=== PATIENT | male | born 1980 | race Caucasian/White ===

== ENCOUNTER 2023-04-26 09:19 | Outpatient (OUT) | payer OTHER, SELFPAY ==
[2023-04-26 10:14] LABS: Basophils Absolute Auto 0.1 10^3/uL (0.0-0.1); Basophils Percent Auto 0.9 % (0.2-2.0); Eosinophils Absolute Auto 0.3 10^3/uL (0.0-0.7); Eosinophils Percent Auto 4.8 % (0.9-7.0); Hematocrit 41.8 % (42.0-54.0); Hemoglobin 13.6 g/dL (14.0-18.0); Immature Granulocytes Abs Auto 0.02 10^3/uL (0.00-0.03); Immature Granulocytes Pct Auto 0.4 % (0.0-0.5); Lymphocytes Absolute Auto 1.4 10^3/uL (1.2-3.8); Lymphocytes Percent Auto 25.4 % (20.5-60.0); Mean Corpuscular HGB Conc 32.5 g/dL (29.9-35.2); Mean Corpuscular Hemoglobin 27.6 pg (25.9-34.0); Mean Corpuscular Volume 84.8 fL (80.0-94.0); Mean Platelet Volume 10.4 fL (9.5-13.5); Monocytes Absolute Auto 0.5 10^3/uL (0.3-0.8); Neutrophils Absolute Auto 3.4 10^3/uL (1.4-6.5); Neutrophils Percent Auto 59.5 % (43.0-75.0); Platelet Count 264 10^3/uL (150-450); Red Blood Count 4.93 10^6/uL (4.70-6.10); Red Cell Distribution Width 13.6 % (11.0-15.0); White Blood Count 5.7 10^3/uL (4.0-11.0)
[2023-04-26 10:54] LABS: Alanine Aminotransferase 28 U/L (16-63); Albumin Globulin Ratio 1.1; Albumin Level 3.9 g/dL (3.4-5.0); Alkaline Phosphatase 55 U/L (46-116); Anion Gap 12.6; Aspartate Amino Transferase 16 U/L (15-37); BUN Creatinine Ratio 13.4; Bilirubin Total 0.5 mg/dL (0.2-1.0); Calcium 8.8 mg/dL (8.5-10.1); Carbon Dioxide 30.6 mmol/L (21.0-32.0); Chloride 100 mmol/L (98-107); Chol HDL Ratio 5.7; Cholesterol 249 mg/dL (<=200); Estimated GFR (African America >60 (>=60); Estimated GFR (Non-African Ame >60 (>=60); Globulin 3.6 g/dL; Glucose 99 mg/dL (74-106); HDL Cholesterol 44 mg/dL (40-60); Potassium 4.2 mmol/L (3.5-5.1); Sodium 139 mmol/L (136-145); Total Protein 7.5 g/dL (6.4-8.2); Triglycerides 95 mg/dL (<=150)
== END 2023-04-26 09:20 | disposition home or self-care (01) ==
LOC: LAB 09:23
PROVIDERS: PCP Internal Medicine; Visit Provider Internal Medicine
DX: E78.5 Hyperlipidemia, unspecified (principal); I99.8 Other disorder of circulatory system
CPT/HCPCS: 36415; 80053; 80061; 82088; 82533; 83835; 84244; 85025

== ENCOUNTER 2023-06-07 09:48 | Outpatient (OUT) | payer OTHER, SELFPAY ==
--- NOTE | 2023-06-07 09:54 | XR_ITS ---
The [address] [address] Patient Name: KATHLEEN LENZ MRN: [id number] date: 1980 Sex: M Assigned Patient Location: RAD Current Patient Location: RAD Accession/Order Number: [id number] Exam Date: 06/07/2023 09:57 Report Date: 06/07/2023 12:25 At the request of: SHAIKH NASRIN Procedure: XR chest 2V EXAM: XR chest 2V HISTORY: Abnormal Chest Xray R93.89 COMPARISON: None. TECHNIQUE: 2 PA and lateral views of chest performed. FINDINGS: There is elevation of the right hemidiaphragm to the level of the right hilum with associated compressive atelectasis. The linear densities adjacent to the elevated right hemidiaphragm correlate with discoid atelectasis. The right cardiac margin is obscured. Visualized portions of the cardiomediastinal silhouette are unremarkable. There is no consolidation or infiltrate. There is no pleural effusion or pulmonary vascular congestion. There is no pneumothorax or osseous abnormality. XR/XR chest 2V IMPRESSION: There is elevation of the right hemidiaphragm to the level of the right hilum with associated compressive atelectasis. The linear densities adjacent to the elevated right hemidiaphragm correlate with discoid atelectasis. Electronically authenticated by: JENNIFER GOOD Date: 06/07/2023 12:25
--- OUTSIDE RECORDS SUMMARY | 2023-06-07 09:55 | XMS_ITS | CCD ---
Author Name Unknown Address [address] [place] [address] Organization [facility] Care Team Providers Care Traffic Personnel Supervisor Name Role Phone DR KACEY LUCAS Admitting Unavailable JACOB, DR KACEY Cortez Attending Unavailable JACOB, DR KACEY Cortez Primary Care Unavailable JACOB, DR KACEY Cortez Consulting Unavailable JACOB, DR BABCOCK Admitting Unavailable JACOB, DR BABCOCK Attending Unavailable JACOB, DR KACEY Cortez Primary Care Unavailable JACOB, DR KACEY Cortez Consulting Unavailable Shaikh Alexandra MD Primary Care Provider SHAIKH ALEXANDRA Attending Unavailable SHAIKH ALEXANDRA Attending Unavailable Medications Current Medications Medication Drug Class(es) Dates Sig (Normalized) Sig (Original) amLODIPine 10 mg oral tablet (1 source) Dihydropyridine Calcium Channel Deonte Start: 4 End: 4 take 1 tablet by mouth in the morning amLODIPine (Norvasc) 10 MG tablet Indications: Poorly controlled blood pressure Take 1 tablet (10 mg) by mouth in the morning. 90 tablet 0 04/22/2023 07/21/2023 Active atorvastatin 40 mg oral tablet (1 source) HMG-CoA Reductase Inhibitor Start: 4 End: 4 take 1 tablet by mouth in the morning atorvastatin (Lipitor) 40 MG tablet Indications: Hyperlipidemia, unspecified hyperlipidemia type (CMS/HCC) Take 1 tablet (40 mg) by mouth in the morning. 90 tablet 0 04/22/2023 07/21/2023 Active carvedilol 25 mg oral tablet (1 source) alpha-Adrenergic Deonte, beta-Adrenergic Deonte Start: 4 End: 4 take 1 tablet by mouth in the morning carvedilol (Coreg) 25 MG tablet Indications: Poorly controlled blood pressure Take 1 tablet (25 mg) by mouth in the morning and 1 tablet (25 mg) in the evening. Take with meals. 180 tablet 0 04/22/2023 07/21/2023 Active hydroCHLOROthiazide 25 mg / losartan potassium 100 mg oral tablet (1 source) Thiazide Diuretic, Angiotensin 2 Receptor Deonte Start: End: 4 take 1 tablet by mouth in the morning losartan-hydroCHLO ROthiazide (Hyzaar) 100-25 MG tablet Indications: Poorly controlled blood pressure Take 1 tablet by mouth in the morning. 90 tablet 0 04/22/2023 07/21/2023 Active Problems Problem Classification Problem Date Documented Da te Episodic/Chronic Administrative/social admission (1 source) Patient encounter status; Translations: [Persons encountering health services in other specified circumstances] Onset: 04-22-2023 04-22-2023 Episodic Disorders of lipid metabolism (1 source) Hyperlipidemia; Translations: [Hyperlipidemia, unspecified] Onset: 04-22-2023 04-22-2023 Chronic Essential hypertension (1 source) Essential hypertension; Translations: [Essential (primary) hypertension] Onset: 04-22-2023 04-22-2023 Chronic Genitourinary symptoms and ill-defined conditions (1 source) Nocturia; Translations: [NOCTURIA] Onset: 04-28-2021 Episodic Other circulatory disease (1 source) Abnormal blood pressure; Translations: [Other disorder of circulatory system] Onset: 04-22-2023 04-22-2023 Episodic Residual codes; unclassified (4 sources) Obstructive sleep apnea (adult) (pediatric); Translations: [OBSTRUCTIVE SLEEP APNEA] Onset: 06-01-2020 Chronic Residual codes; unclassified (1 source) Obstructive sleep apnea syndrome; Translations: [Obstructive sleep apnea (adult) (pediatric)] Onset: 04-22-2023 04-22-2023 Chronic Results Test Name Value Interpretation Reference Range Facility ALL CBC WITH AUTO DIFFon BASOPHILS ABSOLUTE AUTO 0.1 [facility] Basophils/100 WBC (Bld) 0.9 % 0.2 - 2.0 % [facility] Eosinophils/100 WBC (Bld) 4.8 % 0.9 - 7.0 % [facility] Erythrocyte distribution width (RBC) [Ratio] 13.6 % 11.0 - 15.0 % [facility] Hematocrit (Bld) [Volume fraction] 41.8 % Low 42.0 - 54.0 % [facility] Hemoglobin (Bld) [Mass/Vol] 13.6 g/dL Low 14.0 - 18.0 g/dL [facility] IMMATURE GRANULOCYTES ABS AUTO 0.02 [facility] Immature granulocytes/100 WBC (Bld) 0.4 % 0.0 - 0.5 % [facility] Interpretation and review of laboratory results Abnormal [facility] LYMPHOCYTES ABSOLUTE AUTO 1.4 [facility] Lymphocytes/100 WBC (Bld) 25.4 % 20.5 - 60.0 % [facility] MCH (RBC) [Entitic mass] 27.6 pg 25.9 - 34.0 pg [facility] MCHC (RBC) [Mass/Vol] 32.5 g/dL 29.9 - 35.2 g/dL [facility] MCV (RBC) [Entitic vol] 84.8 fL 80.0 - 94.0 fL [facility] MONOCYTES ABSOLUTE AUTO 0.5 [facility] Monocytes/100 WBC (Bld) 9.0 % 1.7 - 12.0 % [facility] NEUTROPHILS ABSOLUTE AUTO 3.4 [facility] Neutrophils/100 WBC (Bld) 59.5 % 43.0 - 75.0 % [facility] Platelet mean volume (Bld) [Entitic vol] 10.4 fL 9.5 - 13.5 fL [facility] EO # 0.3 [facility] TB PLT 264 [facility] TB RBC 4.93 [facility] TB WBC 5.7 [facility] CBC AUTO DIFFon 04-26-2021 BASO # 0.1 103/ul Normal 0.0-0.1 [facility] Comment on above: Performed By: #### C BC #### [facility] [address] [place], [place] [address] Dr. Alo Hendricks Basophils/100 WBC (Bld) 0.9 % Normal 0.2-2.0 [facility] Comment on above: Performed By: #### C BC #### [facility] [address] [place] [address] [address] Alo Hendricks EO # 0.3 103/ul Normal 0.0-0.7 [facility] Comment on above: Performed By: #### C BC #### [facility] [address] [place] [address] Dr. Alo Hendricks Eosinophils/100 WBC (Bld) 4.9 % Normal 0.9-7.0 [facility] Comment on above: Performed By: #### C BC #### [facility] [address] [place] [address] Dr. Alo Hendricks Erythrocyte distribution width (RBC) [Ratio] 13.3 % Normal 11.0-15.0 [facility] Comment on above: Performed By: #### C BC #### [facility] [address] [place] [address] Dr. Alo Hendricks Hematocrit (Bld) [Volume fraction] 43.2 % Normal 42.0-54.0 [facility] Comment on above: Performed By: #### C BC #### [facility] [address] [place] [address] Dr. Alo Hendricks Hemoglobin (Bld) [Mass/Vol] 13.7 g/dL Critically low 14.0-18.0 [facility] Comment on above: Performed By: #### C BC #### [facility] [address] [place] [address] Dr. Alo Hendricks IG # 0.03 10e3/ul Normal 0.00-0.03 [facility] Comment on above: Performed By: #### C BC #### [facility] [address] [place] [address] Dr. Alo Hendricks IG % 0.5 % Normal 0.0-0.5 [facility] Comment on above: Performed By: #### C BC #### [facility] [address] [place] [address] Dr. Alo Hendricks LYMPH # 1.8 103/ul Normal 1.2-3.8 [facility] Comment on above: Performed By: #### C BC #### [facility] [address] [place] [address] Dr. Alo Hendricks Lymphocytes/100 WBC (Bld) 27.7 % Normal 20.5-60.0 [facility] Comment on above: Performed By: #### C BC #### [facility] [address] [place] [address] Dr. Alo Hendricks MANUAL DIFF REQ NO Normal [facility] Comment on above: Performed By: #### C BC #### [facility] [address] [place] [address] Dr. Alo Hendricks MCH (RBC) [Entitic mass] 27.9 pg Normal 25.9-34.0 [facility] Comment on above: Performed By: #### C BC #### [facility] [address] [place] [address] Dr. Alo Hendricks MCHC (RBC) [Mass/Vol] 31.7 g/dL Normal 29.9-35.2 [facility] Comment on above: Performed By: #### C BC #### [facility] [address] [place] [address] Dr. Alo Hendricks MCV (RBC) [Entitic vol] 88.0 fL Normal 80.0-94.0 [facility] Comment on above: Performed By: #### C BC #### [facility] [address] [place] [address] Dr. Alo Hendricks MONO # 0.7 103/ul Normal 0.3-0.8 [facility] Comment on above: Performed By: #### C BC #### [facility] [address] [place] [address] Dr. Alo Hendricks Monocytes/100 WBC (Bld) 11.0 % Normal 1.7-12.0 [facility] Comment on above: Performed By: #### C BC #### [facility] [address] [place] [address] Dr. Alo Hendricks NEUT # 3.6 103/ul Normal 1.4-6.5 [facility] Comment on above: Performed By: #### C BC #### [facility] [address] [place] [address] Dr. Alo Hendricks Neutrophils/100 WBC (Bld) 55.0 % Normal 43.0-75.0 [facility] Comment on above: Performed By: #### C BC #### [facility] [address] [place] [address] Dr. Alo Hendricks Platelet mean volume (Bld) [Entitic vol] 10.4 fL Normal 9.5-13.5 [facility] Comment on above: Performed By: #### C BC #### [facility] [address] [place] [address] Dr. Alo Hendricks PLT 262 103/ul Normal 150-450 [facility] Comment on above: Performed By: #### C BC #### [facility] [address] [place] [address] Dr. Alo Hendricks RBC 4.91 106/ul Normal 4.70-6.10 [facility] Comment on above: Performed By: #### C BC #### [facility] [address] [place] [address] Dr. Alo Hendricks WBC 6.6 103/ul Normal 4.0-11.0 [facility] Comment on above: Performed By: #### C BC #### [facility] [address] [place] [address] Dr. Alo Hendricks LIPID PROFILEon 04-26-2021 CHOL-HDL RATIO NORM SEE BELOW Normal [facility] Comment on above: Result Comment: 3.3 - 4.4 LOW RISK 4.4 - 7.1 AVERAGE RISK 7.1 - 11.0 MODERATE RISK >11.0 HIGH RISK Performed By: #### L IPID, CMP #### [facility] [address] [place] [address] Dr. Alo Hendricks Cholesterol [Mass/Vol] 165 mg/dL Normal <=200 [facility] Comment on above: Performed By: #### L IPID, CMP #### [facility] [address] [place] [address] Dr. Alo Hendricks Cholesterol in HDL [Mass/Vol] 48 mg/dL Normal [facility] Comment on above: Performed By: #### L IPID, CMP #### [facility] [address] [place] [address] Dr. Alo Hendricks Cholesterol in LDL [Mass/Vol] 95.8 mg/dL Normal [facility] Comment on above: Performed By: #### L IPID, CMP #### [facility] [address] [place] [address] Dr. Alo Hendricks Cholesterol.total/Ch olesterol in HDL [Mass ratio] 3.4 {ratio} Normal [facility] Comment on above: Performed By: #### L IPID, CMP #### [facility] [address] [place] [address] Dr. Alo Hendricks HDL NORMAL > or = 60 mg/dl - LOW CARDIOVASCULAR RISK <40 mg/dl - HIGH CARDIOVASCULAR RISK Normal [facility] Comment on above: Performed By: #### L IPID, CMP #### [facility] [address] [place] [address] Dr. Alo Hendricks LDL CALC NORMAL SEE BELOW Normal [facility] Comment on above: Result Comment: <100 mg/dl OPTIMAL 100 - 129 mg/dl NEAR OR ABOVE OPTIMAL 130 - 159 mg/dl BORDERLINE HIGH 160 - 189 mg/dl HIGH >190 mg/dl VERY HIGH Performed By: #### L IPID, CMP #### [facility] [address] [place] [address] Dr. Alo Hendricks Triglyceride [Mass/Vol] 106 mg/dL Normal <=150 [facility] Comment on above: Performed By: #### L IPID, CMP #### [facility] [address] [place] [address] Dr. Alo Hendricks VLDL CALC 21.2 mg/dL Normal [facility] Comment on above: Performed By: #### L IPID, CMP #### [facility] [address] [place] [address] [address] Alo Hendricks PROF 14(COMP METB)on 022 Albumin [Mass/Vol] 4.1 g/dL Normal 3.5-5.0 [facility] Comment on above: Performed By: #### L IPID, CMP #### [facility] [address] [place] [address] Dr. Alo Hendricks Albumin/Globulin [Mass ratio] 1.1 {ratio} Normal [facility] Comment on above: Performed By: #### L IPID, CMP #### [facility] [address] [place] [address] Dr. Alo Hendricks ALP [Catalytic activity/Vol] 61 U/L Normal 38-126 [facility] Comment on above: Performed By: #### L IPID, CMP #### [facility] [address] [place] [address] Dr. Alo Hendricks ALT [Catalytic activity/Vol] 45 U/L Normal 21-72 [facility] Comment on above: Performed By: #### L IPID, CMP #### [facility] [address] [place] [address] Dr. Alo Hendricks Anion gap [Moles/Vol] 11.8 mmol/L Normal [facility] Comment on above: Performed By: #### L IPID, CMP #### [facility] [address] [place] [address] Dr. Alo Hendricks AST [Catalytic activity/Vol] 28 U/L Normal 17-59 [facility] Comment on above: Performed By: #### L IPID, CMP #### [facility] [address] [place] [address] Dr. Alo Hendricks Bilirubin [Mass/Vol] 0.6 mg/dL Normal 0.2-1.3 [facility] Comment on above: Performed By: #### L IPID, CMP #### [facility] [address] [place] [address] Dr. Alo Hendricks Calcium [Mass/Vol] 9.2 mg/dL Normal 8.4-10.2 [facility] Comment on above: Performed By: #### L IPID, CMP #### [facility] [address] [place] [address] Dr. Alo Hendricks Chloride [Moles/Vol] 99 mmol/L Normal 98-107 [facility] Comment on above: Performed By: #### L IPID, CMP #### [facility] [address] [place] [address] Dr. Alo Hendricks CO2 [Moles/Vol] 32.1 mmol/L Critically high 22.0-30.0 [facility] Comment on above: Performed By: #### L IPID, CMP #### [facility] [address] [place] [address] Dr. Alo Hendricks Creatinine [Mass/Vol] 0.76 mg/dL Normal 0.66-1.25 [facility] Comment on above: Performed By: #### L IPID, CMP #### [facility] [address] [place] [address] [address] Alo Hendricks EGFR-AF ARMENIAN >60 Normal >=60 [facility] Comment on above: Performed By: #### L IPID, CMP #### [facility] [address] [place] [address] Dr. Alo Hendricks EGFR-NON AF ARMENIAN >60 Normal >=60 [facility] Comment on above: Performed By: #### L IPID, CMP #### [facility] [address] [place] [address] Dr. Alo Hendricks Globulin (S) [Mass/Vol] 3.7 g/dL Normal [facility] Comment on above: Performed By: #### L IPID, CMP #### [facility] [address] [place] [address] Dr. Alo Hendricks Glucose [Mass/Vol] 101 mg/dL Normal 74-106 [facility] Comment on above: Performed By: #### L IPID, CMP #### [facility] [address] [place] [address] Dr. Alo Hendricks Potassium [Moles/Vol] 4.9 mmol/L Normal 3.4-5.0 [facility] Comment on above: Performed By: #### L IPID, CMP #### [facility] [address] [place] [address] Dr. Alo Hendricks Protein [Mass/Vol] 7.8 g/dL Normal 6.1-8.2 [facility] Comment on above: Performed By: #### L IPID, CMP #### [facility] [address] [place] [address] Dr. Alo Hendricks Sodium [Moles/Vol] 138 mmol/L Normal 137-145 [facility] Comment on above: Performed By: #### L IPID, CMP #### [facility] [address] [place] [address] Dr. Alo Hendricks Urea nitrogen [Mass/Vol] 12.0 mg/dL Normal 9.0-20.0 [facility] Comment on above: Performed By: #### L IPID, CMP #### [facility] [address] [place] [address] Dr. Alo Hendricks Urea nitrogen/Creatinine [Mass ratio] 15.8 mg/mg Normal [facility] Comment on above: Performed By: #### L IPID, CMP #### [facility] [address] [place] [address] Dr. Alo Hendricks UA (CLEAN/CATCH) SERVICE LIAISON REPRESENTATIVE/MICRO I F IND.on 04-26-2021 Bilirubin Ql (U) Negative Normal NEGATIVE [facility] Comment on above: Performed By: #### U MICRO, UACSIND #### [facility] [address] [place] [address] Dr. Alo Hendricks Clarity (U) CLEAR Normal CLEAR [facility] Comment on above: Performed By: #### U MICRO, UACSIND #### [facility] [address] [place] [address] Dr. Alo Hendricks Color (U) LT. YELLOW Normal YELLOW [facility] Comment on above: Performed By: #### U MICRO, UACSIND #### [facility] [address] [place] [address] Dr. Alo Hendricks Glucose Ql (U) Negative Normal NEGATIVE [facility] Comment on above: Performed By: #### U MICRO, UACSIND #### [facility] [address] [place] [address] Dr. Alo Hendricks Hemoglobin Ql (U) Negative Normal NEGATIVE [facility] Comment on above: Performed By: #### U MICRO, UACSIND #### [facility] [address] [place] [address] Dr. Alo Hendricks Ketones Ql (U) Negative Normal NEGATIVE [facility] Comment on above: Performed By: #### U MICRO, UACSIND #### [facility] [address] [place] [address] [address] Alo Hendricks LEUKOCYTES Negative Normal NEGATIVE [facility] Comment on above: Performed By: #### U MICRO, UACSIND #### [facility] [address] [place] [address] [address] Alo Hendricks Nitrite Ql (U) Negative Normal NEGATIVE [facility] Comment on above: Performed By: #### U MICRO, UACSIND #### [facility] [address] [place] [address] [address] Alo Hendricks pH (U) 7.5 [pH] Normal 5-9 [facility] Comment on above: Performed By: #### U MICRO, UACSIND #### [facility] [address] [place] [address] Dr. Alo Hendricks SPEC GRAVITY 1.010 Normal 1.005-<=1.025 [facility] Comment on above: Performed By: #### U MICRO, UACSIND #### [facility] [address] [place] [address] Dr. Alo Hendricks UA PROTEIN Negative Normal NEGATIVE/ TRACE [facility] Comment on above: Performed By: #### U MICRO, UACSIND #### [facility] [address] [place] [address] Dr. Alo Hendricks UR MICRO IND MICROSCOPIC ALREADY ORDERED Normal [facility] Comment on above: Performed By: #### U MICRO, UACSIND #### [facility] [address] [place] [address] [address] Alo Hendricks Urobilinogen Qn (U) 0.2 {Leann'U}/dL Normal 0.2 - 1. 0 [facility] Comment on above: Performed By: #### U MICRO, UACSIND #### [facility] [address] [place] [address] Dr. Alo Hendricks URINE MICROSCOPIC ONLYon BACTERIA NONE SEEN Normal NONE SEEN [facility] Comment on above: Performed By: #### U MICRO, UACSIND #### [facility] [address] [address] [address] Alo Hendricks Bacteria identified Cx Nom (U) NOT INDICATED Normal [facility] Comment on above: Performed By: #### U MICRO, UACSIND #### [facility] [address] [place] [address] Dr. Alo Hendricks CAST NONE SEEN Normal NONE SEEN [facility] Comment on above: Performed By: #### U MICRO, UACSIND #### [facility] [address] [address] [address] Alo Hendricks Crystals LM Nom (Urine sed) NONE SEEN Normal NONE SEEN [facility] Comment on above: Performed By: #### U MICRO, UACSIND #### [facility] [address] [place] [address] Dr. Alo Hendricks Epithelial cells LM Ql (Urine sed) NONE SEEN Normal NONE SEEN /RARE [facility] Comment on above: Performed By: #### U MICRO, UACSIND #### [facility] [address] [address] [address] Alo Hendricks MUCOUS NONE SEEN Normal NONE SEEN [facility] Comment on above: Performed By: #### U MICRO, UACSIND #### [facility] [address] [place] [address] Dr. Alo Hendricks RBC 0-2 Normal 0-2 [facility] Comment on above: Performed By: #### U MICRO, UACSIND #### [facility] [address] [place] [address] Dr. Alo Hendricks WBC NONE SEEN Normal NONE SEEN [facility] Comment on above: Performed By: #### U MICRO, UACSIND #### [facility] [address] [place] [address] Dr. Alo Hendricks Encounters Encounter Date Encounter Type Care Provider Facility Start: 05-27-2023 End: 05-27-2023 ambulatory SHAIKH NASRIN Not Available Start: 04-26-2023 [facility] Result Encounter Shaikh Nasrin GIRALDO Work Phone: [facility] Unsolicited Start: 04-26-2023 [facility] Result Encounter Shaikh Nasrin GIRALDO Work Phone: [facility] Unsolicited Start: 04-22-2023 End: 04-22-2023 ambulatory SHAIKH NASRIN Not Available Start: 04-28-2021 Encounter for genera l adult medical examination without abnormal findings DR SADIQ LUCAS [facility] Start: 04-26-2021 End: 04-27-[address] SADIQ LUCAS Facility:[facility] Start: 04-26-2021 End: 04-27-2021 Encounter for general adult medical examination without abnormal findings DR SADIQ LUCAS Facility:[facility] Start: 06-01-2020 End: 06-02-[address] KACEY LUCAS Facility:[facility] Procedures Date Procedure Procedure Detail Performing Clinician Start: 04-26-2023 ALL CBC WITH AUTO DIFF Shaikh Nasrin GIRALDO Work Phone: Plan of Treatment Date Care Activity Detail Author Start: 05-27-2023 End: 05-27-2023 Patient encounter procedure 05/27/2023 6:30 PM EST Office Visit [facility] [address] [place] [address] Shaikh Alexandra MD [address] [place] [address] [facility] Start: 11-23-2022 Influenza vaccination Influenza Vacc ine (#1) [facility] Start: 1980 Screening for malign ant neoplasm of colon [facility] Payers Date Payer Category Payer Private Health Insurance ALLYSON MCKEON [id number] 2023-Present [address] [place] [id number] 1978 Unknown [id number] 1978 Unknown [id number] 1978 Unknown [id number] 1978 Unknown [id number] 1959 Private Health Insurance [id number] [id number] 1961 Private Health Insurance [id number] [id number] Social History Date Type Detail Facility Start: 04-22-2023 Tobacco smoking stat [facility] Ex-smoker [facility] History of tobacco use Current smoker [facility] History of tobacco use Cigarette Smoker [facility] History of tobacco use Passive smoker [facility] Start: 04-22-2023 Tobacco use and exposure Smokeless t obacco non-user [facility] Start: 04-22-2023 Alcohol intake Lifetime non-d sanjeev (finding) [facility] Start: 04-22-2023 History of Social function [facility] Start: 04-22-2023 Tobacco use panel [facility] Start: 1980 Sex Assigned At Not on file [facility] Clinical Note 06-01-2020 Note Date & Type Note Facility 06-01-2020 Note HOME SLEEP STUDY Ordering Physician: Dr. Kacey Lucas Procedure Date: 06-01-20 CLINICAL HISTORY: This is a 40 year-old male who is 70 tall, weighs 214 pounds, has a body mass index of 29. The patient was referred for a home sleep study due to loud snoring and high blood pressure. RECORDING TIME: The total recording time was 8 hours and 2 minutes, total monitoring time was 7 hours and 14 minutes. COMPREHENSIVE VENTILATORY MONITORING: The patient had 4 apneas and 128 hypopneas. This led to an apnea/hypopnea index of 18 per hour. The average oxygenation while awake was 90% with a minimum oxygen saturation down to 72%. PULSE DATA: The average pulse rate was 77 bpm, maximum pulse rate was 106 bpm and minimum. SNORING DATA: The patient had 85 snoring occurrences. IMPRESSION: 1. This patient does meet criteria for a moderate obstructive sleep apnea with hypoxia and would benefit from CPAP titration. 2. This patient would benefit from treatment of any other coexisting medical condition including obesity, insomnia, anxiety or depression. 3. Please correlate clinically. [facility] Summary Purpose Family History No Family History Records FoundNo Family History Records Found Advance Directives No Advanced Directives Records FoundNo Advanced Directives Records Found Additional Source Comments (unrecognized sect ion and content) No Status Records FoundNo Status Records Found INFORMATION SOURCE (unrecogn ized section and content) DATE CREATED AUTHOR 04/29/2021 [facility] DATE CREATED AUTHOR AUTHOR'S ORGANIZ ATION 05/28/2023 [facility] [employer] Care Teams (unrecognized sec tion and content) Traffic Personnel Supervisor Relationship Specialty Start Date End Date Shaikh Alexandra MD [address] [place] [address] PCP - General Internal Medicine 04/22/23 FOR RECORDS PERTAINING TO PATIENTS WHO ARE OR HAVE BEEN ENROLLED IN A CHEMICAL DEPENDENCY/SUBSTANCEABUSE PROGRAM, SOME INFORMATION MAY BE OMITTED. This clinical summary was aggregated from multiple sources. Caution should be exercised in using it in the provision of clinical care. This summary normalizes information from multiple sources, and as a consequence, information in this document may materially change the coding, format and clinical context of patient data. In addition, data may be omitted in some cases. CLINICAL DECISIONS SHOULD BE BASED ON THE PRIMARY CLINICAL RECORDS. [employer] provides no warranty or guarantee of the accuracy or completeness of information in this document.
== END 2023-06-07 09:49 | disposition home or self-care (01) ==
LOC: RAD 09:50
PROVIDERS: PCP Internal Medicine; Visit Provider Internal Medicine
DX: E78.5 Hyperlipidemia, unspecified (principal); R93.89 Abnormal findings on diagnostic imaging of other specified body structures; J98.11 Atelectasis
CPT/HCPCS: 71046

== ENCOUNTER 2023-07-01 13:21 | Outpatient (OUT) | payer OTHER, SELFPAY ==
--- OUTSIDE RECORDS SUMMARY | 2023-07-01 13:37 | XMS_ITS | CCD ---
Author Organization [facility] Care Team Providers Care Ruby On Rails Software Developer Name Role Phone JACOB, DR KACEY Cortez Admitting Unavailable JACOB, DR KACEY Cortez Attending Unavailable JACOB, DR KACEY Cortez Primary Care Unavailable JACOB, DR KACEY Cortez Consulting Unavailable JACOB, DR BABCOCK Admitting Unavailable JACOB, DR BABCOCK Attending Unavailable JACOB, DR KACEY Cortez Primary Care Unavailable JACOB, DR KACEY Cortez Consulting Unavailable Shaikh Alexandra MD Primary Care Provider [phone] SHAIKH ALEXANDRA Attending Unavailable SHAIKH ALEXANDRA Attending Unavailable ELIO MACHADO Attending Unavailable SHAIKH ALEXANDRA Referring Unavailable Medications Current Medications Medication Drug Class(es) [...] Thiazide Diuretic, Angiotensin 2 Receptor Deonte Start: 4 End: 4 take 1 [...] WITH AUTO DIFFon BASOPHILS ABSOLUTE AUTO 0.1 [facility] Basophils/100 WBC (Bld) 0.9 % 0.2 - 2.0 % [facility] Eosinophils/100 WBC (Bld) 4.8 % 0.9 - 7.0 % [facility] Erythrocyte distribution width (RBC) [Ratio] 13.6 % 11.0 - 15.0 % [facility] Hematocrit (Bld) [Volume fraction] 41.8 % Low 42.0 - 54.0 % [facility] Hemoglobin (Bld) [Mass/Vol] 13.6 g/dL Low 14.0 - 18.0 g/dL [facility] IMMATURE GRANULOCYTES ABS AUTO 0.02 [facility] Immature granulocytes/100 WBC (Bld) 0.4 % 0.0 - 0.5 % [facility] Interpretation and review of laboratory results Abnormal [facility] LYMPHOCYTES ABSOLUTE AUTO 1.4 [facility] Lymphocytes/100 WBC (Bld) 25.4 % 20.5 - 60.0 % [facility] MCH (RBC) [Entitic mass] 27.6 pg 25.9 - 34.0 pg [facility] MCHC (RBC) [Mass/Vol] 32.5 g/dL 29.9 - 35.2 g/dL [facility] MCV (RBC) [Entitic vol] 84.8 fL 80.0 - 94.0 fL [facility] MONOCYTES ABSOLUTE AUTO 0.5 [facility] Monocytes/100 WBC (Bld) 9.0 % 1.7 - 12.0 % [facility] NEUTROPHILS ABSOLUTE AUTO 3.4 [facility] Neutrophils/100 WBC (Bld) 59.5 % 43.0 - 75.0 % [facility] Platelet mean volume (Bld) [Entitic vol] 10.4 fL 9.5 - 13.5 [facility]L [facility] # [facility].3 [facility] TB PLT 264 [facility] TB RBC 4.93 [facility] TB WBC 5.7 [facility] CBC AUTO DIFFon 04-26-2021 BASO # 0.1 103/ul Normal 0.0-0.1 [facility] Comment on above: Performed By: #### C BC #### [facility] [address] [place] [address] [address] Alo Hendricks Basophils/100 WBC (Bld) 0.9 % Normal 0.2-2.0 [facility] Comment on above: Performed By: #### C BC #### [facility] [address] [place], [place] [address] Dr. Alo Hendricks EO # 0.3 103/ul Normal 0.0-0.7 [facility] Comment on above: Performed By: #### C BC #### [facility] [address] [place] [address] Dr. Alo Hendricks Eosinophils/100 WBC (Bld) 4.9 % Normal 0.9-7.0 [facility] Comment on above: Performed By: #### C BC #### [facility] [address] [place] [address] Dr. Alo Hendricks Erythrocyte distribution width (RBC) [Ratio] 13.3 % Normal 11.0-15.0 [facility] Comment on above: Performed By: #### C BC #### [facility] [address] [place] [address] Dr. Alo Hendricks Hematocrit (Bld) [Volume fraction] 43.2 % Normal 42.0-54.0 [facility] Comment on above: Performed By: #### C BC #### [facility] [address] [place] [address] Dr. Alo Hendricks Hemoglobin (Bld) [Mass/Vol] 13.7 g/dL Critically low 14.0-18.0 [facility] Comment on above: Performed By: #### C BC #### [facility] [address] [place] [address] Dr. Alo Hendricks IG # 0.03 10e3/ul Normal 0.00-0.03 [facility] Comment on above: Performed By: #### C BC #### [facility] [address] [place] [address] Dr. Alo Hendricks IG % 0.5 % Normal 0.0-0.5 [facility] Comment on above: Performed By: #### C BC #### [facility] [address] [place] [address] Dr. Alo Hendricks LYMPH # 1.8 103/ul Normal 1.2-3.8 [facility] Comment on above: Performed By: #### C BC #### [facility] [address] [place] [address] Dr. Alo Hendricks Lymphocytes/100 WBC (Bld) 27.7 % Normal 20.5-60.0 [facility] Comment on above: Performed By: #### C BC #### [facility] [address] [place] [address] Dr. Alo Hendricks MANUAL DIFF REQ NO Normal [facility] Comment on above: Performed By: #### C BC #### [facility] [address] [place] [address] Dr. Alo Hendricks MCH (RBC) [Entitic mass] 27.9 pg Normal 25.9-34.0 [facility] Comment on above: Performed By: #### C BC #### [facility] [address] [place] [address] Dr. Alo Hendricks MCHC (RBC) [Mass/Vol] 31.7 g/dL Normal 29.9-35.2 [facility] Comment on above: Performed By: #### C BC #### [facility] [address] [place] [address] Dr. Alo Hendricks MCV (RBC) [Entitic vol] 88.0 fL Normal 80.0-94.0 [facility] Comment on above: Performed By: #### C BC #### [facility] [address] [place] [address] Dr. Alo Hendricks MONO # 0.7 103/ul Normal 0.3-0.8 [facility] Comment on above: Performed By: #### C BC #### [facility] [address] [place] [address] Dr. Alo Hendricks Monocytes/100 WBC (Bld) 11.0 % Normal 1.7-12.0 [facility] Comment on above: Performed By: #### C BC #### [facility] [address] [place] [address] Dr. Alo Hendricks NEUT # 3.6 103/ul Normal 1.4-6.5 [facility] Comment on above: Performed By: #### C BC #### [facility] [address] [place] [address] Dr. Alo Hendricks Neutrophils/100 WBC (Bld) 55.0 % Normal 43.0-75.0 [facility] Comment on above: Performed By: #### C BC #### [facility] [address] [place] [address] Dr. Alo Hendricks Platelet mean volume (Bld) [Entitic vol] 10.4 fL Normal 9.5-13.5 [facility] Comment on above: Performed By: #### C BC #### [facility] [address] [place] [address] Dr. Alo Hendricks PLT 262 103/ul Normal 150-450 [facility] Comment on above: Performed By: #### C BC #### [facility] [address] [place] [address] Dr. Alo Hendricks RBC 4.91 106/ul Normal 4.70-6.10 [facility] Comment on above: Performed By: #### C BC #### [facility] [address] [place] [address] Dr. Alo Hendricks WBC 6.6 103/ul Normal 4.0-11.0 [facility] Comment on above: Performed By: #### C BC #### [facility] [address] [place] [address] Dr. Alo Hendricks LIPID PROFILEon 04-26-2021 CHOL-HDL RATIO NORM SEE BELOW Normal [facility] Comment on above: Result Comment: 3.3 - 4.4 LOW RISK 4.4 - 7.1 AVERAGE RISK 7.1 - 11.0 MODERATE RISK >11.0 HIGH RISK Performed By: #### L IPID, CMP #### [facility] [address] [place] [address] Dr. Alo Hendricks Cholesterol [Mass/Vol] 165 mg/dL Normal <=200 [facility] Comment on above: Performed By: #### L IPID, CMP #### [facility] [address] [place] [address] Dr. Alo Hendricks Cholesterol in HDL [Mass/Vol] 48 mg/dL Normal [facility] Comment on above: Performed By: #### L IPID, CMP #### [facility] [address] [place] [address] Dr. Alo Hendricks Cholesterol in LDL [Mass/Vol] 95.8 mg/dL Normal [facility] Comment on above: Performed By: #### L IPID, CMP #### [facility] [address] [place] [address] Dr. Alo Hendricks Cholesterol.total/Ch olesterol in HDL [Mass ratio] 3.4 {ratio} Normal [facility] Comment on above: Performed By: #### L IPID, CMP #### [facility] [address] [address] [address] Alo Hendricks HDL NORMAL > or = 60 mg/dl - LOW CARDIOVASCULAR RISK <40 mg/dl - HIGH CARDIOVASCULAR RISK Normal [facility] Comment on above: Performed By: #### L IPID, CMP #### [facility] [address] [place] [address] Dr. Alo Hendricks LDL CALC NORMAL SEE BELOW Normal [facility] Comment on above: Result Comment: <100 mg/dl OPTIMAL 100 - 129 mg/dl NEAR OR ABOVE OPTIMAL 130 - 159 mg/dl BORDERLINE HIGH 160 - 189 mg/dl HIGH >190 mg/dl VERY HIGH Performed By: #### L IPID, CMP #### [facility] [address] [place] [address] Dr. Alo Hendricks Triglyceride [Mass/Vol] 106 mg/dL Normal <=150 [facility] Comment on above: Performed By: #### L IPID, CMP #### [facility] [address] [place] [address] Dr. Alo Hendricks VLDL CALC 21.2 mg/dL Normal [facility] Comment on above: Performed By: #### L IPID, CMP #### [facility] [address] [place] [address] Dr. Alo Hendricks PROF 14(COMP METB)on 022 Albumin [Mass/Vol] 4.1 g/dL Normal 3.5-5.0 [facility] Comment on above: Performed By: #### L IPID, CMP #### [facility] [address] [place] [address] Dr. Alo Hendricks Albumin/Globulin [Mass ratio] 1.1 {ratio} Normal [facility] Comment on above: Performed By: #### L IPID, CMP #### [facility] [address] [address] [address] Alo Hendricks ALP [Catalytic activity/Vol] 61 U/L Normal 38-126 [facility] Comment on above: Performed By: #### L IPID, CMP #### [facility] [address] [address] [address] Alo Hendricks ALT [Catalytic activity/Vol] 45 U/L Normal 21-72 [facility] Comment on above: Performed By: #### L IPID, CMP #### [facility] [address] [address] [address] Alo Hendricks Anion gap [Moles/Vol] 11.8 mmol/L Normal [facility] Comment on above: Performed By: #### L IPID, CMP #### [facility] [address] [address] [address] Alo Hendricks AST [Catalytic activity/Vol] 28 U/L Normal 17-59 [facility] Comment on above: Performed By: #### L IPID, CMP #### [facility] [address] [address] [address] Alo Hendricks Bilirubin [Mass/Vol] 0.6 mg/dL Normal 0.2-1.3 [facility] Comment on above: Performed By: #### L IPID, CMP #### [facility] [address] [address] [address] Alo Hendricks Calcium [Mass/Vol] 9.2 mg/dL Normal 8.4-10.2 [facility] Comment on above: Performed By: #### L IPID, CMP #### [facility] [address] [address] [address] Alo Hendricks Chloride [Moles/Vol] 99 mmol/L Normal 98-107 [facility] Comment on above: Performed By: #### L IPID, CMP #### [facility] [address] [address] [address] Alo Hendricks CO2 [Moles/Vol] 32.1 mmol/L Critically high 22.0-30.0 [facility] Comment on above: Performed By: #### L IPID, CMP #### [facility] [address] [place] [address] Dr. Alo Hendricks Creatinine [Mass/Vol] 0.76 mg/dL Normal 0.66-1.25 [facility] Comment on above: Performed By: #### L IPID, CMP #### [facility] [address] [address] [address] Alo Hendricks EGFR-AF LITHUANIAN >60 Normal >=60 [facility] Comment on above: Performed By: #### L IPID, CMP #### [facility] [address] [place] [address] Dr. Alo Hendricks EGFR-NON AF LITHUANIAN >60 Normal >=60 [facility] Comment on above: Performed By: #### L IPID, CMP #### [facility] [address] [place] [address] Dr. Alo Hendricks Globulin (S) [Mass/Vol] 3.7 g/dL Normal [facility] Comment on above: Performed By: #### L IPID, CMP #### [facility] [address] [place] [address] Dr. Alo Hendricks Glucose [Mass/Vol] 101 mg/dL Normal 74-106 [facility] Comment on above: Performed By: #### L IPID, CMP #### [facility] [address] [place] [address] Dr. Alo eHndricks Potassium [Moles/Vol] 4.9 mmol/L Normal 3.4-5.0 [facility] Comment on above: Performed By: #### L IPID, CMP #### [facility] [address] [address] [address] Alo Hendricks Protein [Mass/Vol] 7.8 g/dL Normal 6.1-8.2 [facility] Comment on above: Performed By: #### L IPID, CMP #### [facility] [address] [place] [address] Dr. Alo Hendricks Sodium [Moles/Vol] 138 mmol/L Normal 137-145 [facility] Comment on above: Performed By: #### L IPID, CMP #### [facility] [address] [place] [address] Dr. Alo Hendricks Urea nitrogen [Mass/Vol] 12.0 mg/dL Normal 9.0-20.0 [facility] Comment on above: Performed By: #### L IPID, CMP #### [facility] [address] [place] [address] Dr. Alo Hendricks Urea nitrogen/Creatinine [Mass ratio] 15.8 mg/mg Normal [facility] Comment on above: Performed By: #### L IPID, CMP #### [facility] [address] [place] [address] Dr. Alo Hendricks UA (CLEAN/CATCH) CARE [employer]ESSION[employer]/MICRO I F IND.on 04-26-2021 Bilirubin Ql (U) Negative Normal NEGATIVE [facility] Comment on above: Performed By: #### U MICRO, UACSIND #### [facility] [address] [place] [address] Dr. Alo Hendricks Clarity (U) CLEAR Normal CLEAR [facility] Comment on above: Performed By: #### U MICRO, UACSIND #### [facility] [address] [place] [address] Dr. Alo Hendricks Color (U) LT. YELLOW Normal YELLOW [facility] Comment on above: Performed By: #### U MICRO, UACSIND #### [facility] [address] [place] [address] Dr. Alo Hendricks Glucose Ql (U) Negative Normal NEGATIVE [facility] Comment on above: Performed By: #### U MICRO, UACSIND #### [facility] [address] [place] [address] Dr. Alo Hendricks Hemoglobin Ql (U) Negative Normal NEGATIVE [facility] Comment on above: Performed By: #### U MICRO, UACSIND #### [facility] [address] [place] [address] Dr. Alo Hendricks Ketones Ql (U) Negative Normal NEGATIVE [facility] Comment on above: Performed By: #### U MICRO, UACSIND #### [facility] [address] [address] [address] Alo Hendricks LEUKOCYTES Negative Normal NEGATIVE [facility] Comment on above: Performed By: #### U MICRO, UACSIND #### [facility] [address] [address] [address] Alo Hendricks Nitrite Ql (U) Negative Normal NEGATIVE [facility] Comment on above: Performed By: #### U MICRO, UACSIND #### [facility] [address] [place] [address] Dr. Alo Hendricks pH (U) 7.5 [pH] Normal 5-9 [facility] Comment on above: Performed By: #### U MICRO, UACSIND #### [facility] [address] [place] [address] Dr. Alo Hendricks SPEC GRAVITY 1.010 Normal 1.005-<=1.025 [facility] Comment on above: Performed By: #### U MICRO, UACSIND #### [facility] [address] [place] [address] Dr. Alo Hendricks UA PROTEIN Negative Normal NEGATIVE/ TRACE [facility] Comment on above: Performed By: #### U MICRO, UACSIND #### [facility] [address] [place] [address] Dr. Alo Hendricks UR MICRO IND MICROSCOPIC ALREADY ORDERED Normal [facility] Comment on above: Performed By: #### U MICRO, UACSIND #### [facility] [address] [address] [address] Alo Hendricks Urobilinogen Qn (U) 0.2 {Leann'U}/dL Normal 0.2 - 1. 0 [facility] Comment on above: Performed By: #### U MICRO, UACSIND #### [facility] [address] [place] [address] Dr. Alo Hendricks URINE MICROSCOPIC ONLYon BACTERIA NONE SEEN Normal NONE SEEN [facility] Comment on above: Performed By: #### U MICRO, UACSIND #### [facility] [address] [address] [address] Alo Hendricks Bacteria identified Cx Nom (U) NOT INDICATED Normal [facility] Comment on above: Performed By: #### U MICRO, UACSIND #### [facility] [address] [address] [address] Alo Hendricks CAST NONE SEEN Normal NONE SEEN [facility] Comment on above: Performed By: #### U MICRO, UACSIND #### [facility] [address] [place] [address] Dr. Alo Hendricks Crystals LM Nom (Urine sed) NONE SEEN Normal NONE SEEN [facility] Comment on above: Performed By: #### U MICRO, UACSIND #### [facility] [address] [place] [address] Dr. Alo Hendricks Epithelial cells LM Ql (Urine sed) NONE SEEN Normal NONE SEEN /RARE [facility] Comment on above: Performed By: #### U MICRO, UACSIND #### [facility] [address] [place] [address] Dr. Alo Hendricks MUCOUS NONE SEEN Normal NONE SEEN [facility] Comment on above: Performed By: #### U MICRO, UACSIND #### [facility] [address] [place] [address] Dr. Alo Hendricks RBC 0-2 Normal 0-2 [facility] Comment on above: Performed By: #### U MICRO, UACSIND #### [facility] [address] [place] [address] Dr. Alo Hendricks WBC NONE SEEN Normal NONE SEEN [facility] Comment on above: Performed By: #### U MICRO, UACSIND #### [facility] [address] [place] [address] Dr. Alo Hendricks Encounters Encounter Date Encounter Type Care Provider Facility Start: 06-24-2023 End: 06-24-2023 ambulatory ELIO MACHADO Not Available Start: 05-27-2023 End: 05-27-2023 ambulatory SHAIKH NASRIN Not Available Start: 04-26-2023 [facility] Result Encounter Shaikh Nasrin GIRALDO Work Phone: [facility] Unsolicited Start: 04-26-2023 [facility] Result Encounter Shaikh Nasrin GIRALDO Work Phone: [facility] Unsolicited Start: 04-22-2023 End: 04-22-2023 ambulatory SHAIKH NASRIN Not Available Start: 04-28-2021 Encounter for genera l adult medical examination without abnormal findings DR SADIQ LUCAS [facility] Start: 04-26-2021 End: 04-27-[address] SADIQ [...] Visit [facility] [address] [place] [address] Shaikh Alexandra MD [address] [place] [id number] [facility] Start: 11-23-2022 Influenza vaccination Influenza Vacc ine (#1) [facility] Start: 1980 Screening for malign ant neoplasm of colon [facility] Payers Date Payer Category Payer Private Health Insurance [employer] MCKEON [id number] 2023-Present [address] [place] [id number] 1978 Unknown [id number] 1978 Unknown [id number] 1978 Unknown [id number] 1978 Unknown [id number] 1978 Unknown [id number] 1959 Private Health Insurance [facility] [id number] 1961 Private Health Insurance [facility] [id number] Social History Date Type Detail Facility Start: 04-22-2023 Tobacco smoking stat [facility] Ex-smoker [facility] History of tobacco use Current smoker [facility] History of tobacco use [facility]igarette Smoker [facility] History of tobacco use Passive smoker [facility] Start: 04-22-2023 Tobacco use and exposure Smokeless t obacco non-user [facility] Start: 04-22-2023 Alcohol intake Lifetime non-d sanjeev (finding) [facility] Start: 04-22-2023 History of Social function [facility] Start: 04-22-2023 Tobacco use panel [facility] Start: 1980 Sex Assigned At Not on file N [facility] Clinical Note 06-01-2020 Note Date & [...] or depression. 3. Please correlate clinically. [facility] Summary Purpose Family History No Family History Records FoundNo Family History Records Found Advance Directives No Advanced Directives Records FoundNo Advanced Directives Records Found Additional Source Comments (unrecognized sect ion and content) No Status Records FoundNo Status Records Found INFORMATION SOURCE (unrecogn ized section and content) DATE CREATED AUTHOR 04/29/2021 [facility] p[facility] DATE CREATED AUTHOR AUTHOR'S ORGANIZ ATION 06/25/2023 [facility] [employer] Care Teams (unrecognized sec tion and content) Ruby On Rails Software Developer Relationship Specialty Start Date End Date Shaikh Alexandra MD [address] [place] [address] PCP - General Internal Medicine 04/22/23 FOR [...] BE BASED ON THE PRIMARY CLINICAL RECORDS. [facility]. provides no warranty or guarantee of the accuracy or completeness of information in this document.
== END 2023-07-01 13:22 | disposition home or self-care (01) ==
LOC: PST 13:33
PROVIDERS: PCP Internal Medicine; Visit Provider Surgery
DX: Z01.818 Encounter for other preprocedural examination (principal)

== ENCOUNTER 2023-07-05 07:55 | Day surgery (SDC) | payer OTHER, SELFPAY ==
--- OUTSIDE RECORDS SUMMARY | 2023-07-05 07:59 | XMS_ITS | CCD ---
Author Organization [facility] Care Team Providers Care Travel Sales Consultant Name Role Phone JACOB, DR KACEY Cortez [...] DIFFon BASOPHILS ABSOLUTE AUTO 0.1 [facility] Basophils/100 WBC (Bld) 0.9 % 0.2 - 2.0 % [facility] Eosinophils/100 WBC (Bld) 4.8 % 0.9 - 7.0 % [facility] Erythrocyte distribution width (RBC) [Ratio] 13.6 % 11.0 - 15.0 % [facility] Hematocrit (Bld) [Volume fraction] 41.8 % Low 42.0 - 54.0 % [facility] Hemoglobin (Bld) [Mass/Vol] 13.6 g/dL Low 14.0 - 18.0 g/dL [facility] IMMATURE GRANULOCYTES ABS AUTO 0.02 [facility] Immature granulocytes/100 WBC (Bld) 0.4 % 0.0 - 0.5 % [facility] Interpretation and review of laboratory results Abnormal [facility] LYMPHOCYTES ABSOLUTE AUTO 1.4 [facility] Lymphocytes/100 WBC (Bld) 25.4 % 20.5 - 60.0 % [facility] MCH (RBC) [Entitic mass] 27.6 pg 25.9 - 34.0 pg [facility] MCHC (RBC) [Mass/Vol] 32.5 g/dL 29.9 - 35.2 g/dL [facility] MCV (RBC) [Entitic vol] 84.8 fL 80.0 - 94.0 fL [facility] MONOCYTES ABSOLUTE AUTO 0.5 [facility] Monocytes/100 WBC (Bld) 9.0 % 1.7 - 12.0 % [facility] NEUTROPHILS ABSOLUTE AUTO 3.4 [facility] Neutrophils/100 WBC (Bld) 59.5 % 43.0 - 75.0 % [facility] Platelet mean volume (Bld) [Entitic vol] 10.4 fL 9.5 - 13.5 fL [facility] # 0.3 [facility] TB PLT 264 [facility] TB RBC 4.93 [facility] TB WBC 5.7 [facility] CBC AUTO DIFFon 04-26-2021 BASO # 0.1 103/ul Normal 0.0-0.1 [facility] Comment on above: Performed By: #### C BC #### [facility] [address] [place] [id number] [address] Alo Hendricks Basophils/100 WBC (Bld) 0.9 % Normal 0.2-2.0 [facility] Comment on above: Performed By: #### C BC #### [facility] [address] [place], [place] [address] Dr. Alo Hendricks EO # 0.3 103/ul Normal 0.0-0.7 [facility] Comment on above: Performed By: #### C BC #### [facility] [address] [place] [address] Dr. Alo Hendricks Eosinophils/100 WBC (Bld) 4.9 % Normal 0.9-7.0 [facility] Comment on above: Performed By: #### C BC #### [facility] [address] [place] [address] Dr. Alo Hendricks Erythrocyte distribution width (RBC) [Ratio] 13.3 % Normal 11.0-15.0 [facility] Comment on above: Performed By: #### C BC #### [facility] [address] [place] [address] Dr. Alo Hendricks Hematocrit (Bld) [Volume fraction] 43.2 % Normal 42.0-54.0 [facility] Comment on above: Performed By: #### C BC #### [facility] [address] [place] [address] Dr. Alo Hendricks Hemoglobin (Bld) [Mass/Vol] 13.7 g/dL Critically low 14.0-18.0 [facility] Comment on above: Performed By: #### C BC #### [facility] [address] [place] [address] Dr. Alo Hendricks IG # 0.03 10e3/ul Normal 0.00-0.03 [facility] Comment on above: Performed By: #### C BC #### [facility] [address] [place] [address] Dr. Alo Hendricks IG % 0.5 % Normal 0.0-0.5 [facility] Comment on above: Performed By: #### C BC #### [facility] [address] [place] [address] Dr. Alo Hendricks LYMPH # 1.8 103/ul Normal 1.2-3.8 [facility] Comment on above: Performed By: #### C BC #### [facility] [address] [place] [address] Dr. Alo Hendricks Lymphocytes/100 WBC (Bld) 27.7 % Normal 20.5-60.0 [facility] Comment on above: Performed By: #### C BC #### [facility] [address] [place] [address] Dr. Alo Hendricks MANUAL DIFF REQ NO Normal [facility] Comment on above: Performed By: #### C BC #### [facility] [address] [place] [address] Dr. Alo Hendricks MCH (RBC) [Entitic mass] 27.9 pg Normal 25.9-34.0 [facility] Comment on above: Performed By: #### C BC #### [facility] [address] [place] [address] Dr. Alo Hendricks MCHC (RBC) [Mass/Vol] 31.7 g/dL Normal 29.9-35.2 [facility] Comment on above: Performed By: #### C BC #### [facility] [address] [place] [address] Dr. Alo Hendricks MCV (RBC) [Entitic vol] 88.0 fL Normal 80.0-94.0 [facility] Comment on above: Performed By: #### C BC #### [facility] [address] [place] [address] Dr. Alo Hendricks MONO # 0.7 103/ul Normal 0.3-0.8 [facility] Comment on above: Performed By: #### C BC #### [facility] [address] [place] [address] Dr. Alo Hendricks Monocytes/100 WBC (Bld) 11.0 % Normal 1.7-12.0 [facility] Comment on above: Performed By: #### C BC #### [facility] [address] [place] [address] Dr. Alo Hendricks NEUT # 3.6 103/ul Normal 1.4-6.5 [facility] Comment on above: Performed By: #### C BC #### [facility] [address] [place] [address] Dr. Alo Hendricks Neutrophils/100 WBC (Bld) 55.0 % Normal 43.0-75.0 [facility] Comment on above: Performed By: #### C BC #### [facility] [address] [place] [address] Dr. Alo Hendricks Platelet mean volume (Bld) [Entitic vol] 10.4 fL Normal 9.5-13.5 [facility] Comment on above: Performed By: #### C BC #### [facility] [address] [place] [address] Dr. Alo Hendricks PLT 262 103/ul Normal 150-450 [facility] Comment on above: Performed By: #### C BC #### [facility] [address] [place] [address] Dr. Alo Hendricks RBC 4.91 106/ul Normal 4.70-6.10 [facility] Comment on above: Performed By: #### C BC #### [facility] [address] [place] [address] Dr. Alo Hendricks WBC 6.6 103/ul Normal 4.0-11.0 [facility] Comment on above: Performed By: #### C BC #### [facility] [address] [place] [address] Dr. Alo Hendricks LIPID PROFILEon 04-26-2021 CHOL-HDL RATIO NORM SEE BELOW Normal [facility] Comment on above: Result Comment: 3.3 - 4.4 LOW RISK 4.4 - 7.1 AVERAGE RISK 7.1 - 11.0 MODERATE RISK >11.0 HIGH RISK Performed By: #### L IPID, CMP #### [facility] [address] [place] [address] Dr. Alo Hendricks Cholesterol [Mass/Vol] 165 mg/dL Normal <=200 [facility] Comment on above: Performed By: #### L IPID, CMP #### [facility] [address] [place] [address] Dr. Alo Hendricks Cholesterol in HDL [Mass/Vol] 48 mg/dL Normal [facility] Comment on above: Performed By: #### L IPID, CMP #### [facility] [address] [place] [address] Dr. Alo Hendricks Cholesterol in LDL [Mass/Vol] 95.8 mg/dL Normal [facility] Comment on above: Performed By: #### L IPID, CMP #### [facility] [address] [place] [address] Dr. Alo Hendricks Cholesterol.total/Ch olesterol in HDL [Mass ratio] 3.4 {ratio} Normal [facility] Comment on above: Performed By: #### L IPID, CMP #### [facility] [address] [address] [address] Alo Hendricks HDL NORMAL > or = 60 mg/dl - LOW CARDIOVASCULAR RISK <40 mg/dl - HIGH CARDIOVASCULAR RISK Normal [facility] Comment on above: Performed By: #### L IPID, CMP #### [facility] [address] [place] [address] Dr. Alo Hendricks LDL CALC NORMAL SEE BELOW Normal [facility] Comment on above: Result Comment: <100 mg/dl OPTIMAL 100 - 129 mg/dl NEAR OR ABOVE OPTIMAL 130 - 159 mg/dl BORDERLINE HIGH 160 - 189 mg/dl HIGH >190 mg/dl VERY HIGH Performed By: #### L IPID, CMP #### [facility] [address] [place] [address] Dr. Alo Hendricks Triglyceride [Mass/Vol] 106 mg/dL Normal <=150 [facility] Comment on above: Performed By: #### L IPID, CMP #### [facility] [address] [place] [address] Dr. Alo Hendricks VLDL CALC 21.2 mg/dL Normal [facility] Comment on above: Performed By: #### L IPID, CMP #### [facility] [address] [place] [address] Dr. Alo Hendricks PROF 14(COMP METB)on 022 Albumin [Mass/Vol] 4.1 g/dL Normal 3.5-5.0 [facility] Comment on above: Performed By: #### L IPID, CMP #### [facility] [address] [place] [address] Dr. Alo Hendricks Albumin/Globulin [Mass ratio] 1.1 {ratio} Normal [facility] Comment on above: Performed By: #### L IPID, CMP #### [facility] [address] [address] [address] Alo Hendricks ALP [Catalytic activity/Vol] 61 U/L Normal 38-126 [facility] Comment on above: Performed By: #### L IPID, CMP #### [facility] [address] [address] [address] Alo Hendrikcs ALT [Catalytic activity/Vol] 45 U/L Normal 21-72 [facility] Comment on above: Performed By: #### L IPID, CMP #### [facility] [address] [address] [address] Alo Hendricks Anion gap [Moles/Vol] 11.8 mmol/L Normal [facility] Comment on above: Performed By: #### L IPID, CMP #### [facility] [address] [address] [address] Alo Hendricks AST [Catalytic activity/Vol] 28 U/L Normal 17-59 [facility] Comment on above: Performed By: #### L IPID, CMP #### [facility] [address] [address] [address] Alo Hendricks Bilirubin [Mass/Vol] 0.6 mg/dL Normal 0.2-1.3 [facility] Comment on above: Performed By: #### L IPID, CMP #### [facility] [address] [address] [address] Alo Hendricks Calcium [Mass/Vol] 9.2 mg/dL Normal 8.4-10.2 [facility] Comment on above: Performed By: #### L IPID, CMP #### [facility] [address] [address] [address] Alo Hendricks Chloride [Moles/Vol] 99 mmol/L Normal 98-107 [facility] Comment on above: Performed By: #### L IPID, CMP #### [facility] [address] [address] [address] Alo Hendricks CO2 [Moles/Vol] 32.1 mmol/L Critically high 22.0-30.0 [facility] Comment on above: Performed By: #### L IPID, CMP #### [facility] [address] [place] [address] Dr. Alo Hendricks Creatinine [Mass/Vol] 0.76 mg/dL Normal 0.66-1.25 [facility] Comment on above: Performed By: #### L IPID, CMP #### [facility] [address] [address] [address] Alo Hendricks EGFR-AF BELARUSIAN >60 Normal >=60 [facility] Comment on above: Performed By: #### L IPID, CMP #### [facility] [address] [place] [address] Dr. Alo Hendricks EGFR-NON AF BELARUSIAN >60 Normal >=60 [facility] Comment on above: Performed By: #### L IPID, CMP #### [facility] [address] [place] [address] Dr. Alo Hendricks Globulin (S) [Mass/Vol] 3.7 g/dL Normal [facility] Comment on above: Performed By: #### L IPID, CMP #### [facility] [address] [place] [address] Dr. Alo Hendricks Glucose [Mass/Vol] 101 mg/dL Normal 74-106 [facility] Comment on above: Performed By: #### L IPID, CMP #### [facility] [address] [place] [address] Dr. Alo Hendricks Potassium [Moles/Vol] 4.9 mmol/L Normal 3.4-5.0 [facility] Comment on above: Performed By: #### L IPID, CMP #### [facility] [address] [address] [address] Alo Hendricks Protein [Mass/Vol] 7.8 g/dL Normal 6.1-8.2 [facility] Comment on above: Performed By: #### L IPID, CMP #### [facility] [address] [place] [address] Dr. Alo Hendricks Sodium [Moles/Vol] 138 mmol/L Normal 137-145 [facility] Comment on above: Performed By: #### L IPID, CMP #### [facility] [address] [place] [address] Dr. Alo Hendricks Urea nitrogen [Mass/Vol] 12.0 mg/dL Normal 9.0-20.0 [facility] Comment on above: Performed By: #### L IPID, CMP #### [facility] [address] [place] [address] Dr. Alo Hendricks Urea nitrogen/Creatinine [Mass ratio] 15.8 mg/mg Normal [facility] Comment on above: Performed By: #### L IPID, CMP #### [facility] [address] [place] [address] Dr. Alo Hendricks UA (CLEAN/CATCH) [employer]IVATION MANAGER/MICRO I F IND.on 04-26-2021 Bilirubin Ql (U) Negative Normal NEGATIVE [facility] Comment on above: Performed By: #### U MICRO, UACSIND #### [facility] [address] [place] [address] Dr. Alo Hendricks Clarity (U) CLEAR Normal CLEAR [facility] Comment on above: Performed By: #### U MICRO, UACSIND #### [facility] [address] [place] [address] Dr. Alo Hendricks Color (U) LT. YELLOW Normal YELLOW [facility] Comment on above: Performed By: #### U MICRO, UACSIND #### [facility] [address] [place] [address] Dr. Alo Hendricks Glucose Ql (U) Negative Normal NEGATIVE [facility] Comment on above: Performed By: #### U MICRO, UACSIND #### [facility] [address] [place] [address] Dr. Alo Hendricks Hemoglobin Ql (U) Negative Normal NEGATIVE [facility] Comment on above: Performed By: #### U MICRO, UACSIND #### [facility] [address] [place] [address] Dr. Alo Hendricks Ketones Ql (U) Negative Normal NEGATIVE [facility] Comment on above: Performed By: #### U MICRO, UACSIND #### [facility] [address] [address] [address] Alo Hendricks LEUKOCYTES Negative Normal NEGATIVE [facility] Comment on above: Performed By: #### U MICRO, UACSIND #### [facility] [address] [address] [address] Alo Hendricks Nitrite Ql (U) Negative Normal NEGATIVE [facility] Comment on above: Performed By: #### U MICRO, UACSIND #### [facility] [address] [place] [address] Dr. Alo Hendricks pH (U) 7.5 [pH] Normal 5-9 [facility] Comment on above: Performed By: #### U MICRO, UACSIND #### [facility] [address] [place] [address] Dr. Alo Hendricks SPEC GRAVITY 1.010 Normal 1.005-<=1.025 [facility] Comment on above: Performed By: #### U MICRO, UACSIND #### [facility] [address] [place] [address] Dr. Alo Hendricks UA PROTEIN Negative Normal NEGATIVE/ TRACE [facility] Comment on above: Performed By: #### U MICRO, UACSIND #### [facility] [address] [place] [address] Dr. Alo Hendricks UR MICRO IND MICROSCOPIC ALREADY ORDERED Normal [facility] Comment on above: Performed By: #### U MICRO, UACSIND #### [facility] [address] [address] [address] Alo Hendricks Urobilinogen Qn (U) 0.2 {Leann'U}/dL Normal 0.2 - 1. 0 [facility] Comment on above: Performed By: #### U MICRO, UACSIND #### [facility] [address] [place] [address] Dr. Alo Hendricks URINE MICROSCOPIC ONLYon BACTERIA NONE SEEN Normal NONE SEEN [facility] Comment on above: Performed By: #### U MICRO, UACSIND #### [facility] [address] [address] [address] Alo Hendricks Bacteria identified Cx Nom (U) NOT INDICATED Normal [facility] Comment on above: Performed By: #### U MICRO, UACSIND #### [facility] [address] [address] [address] Alo Hendricks CAST NONE SEEN Normal NONE SEEN [facility] Comment on above: Performed By: #### U MICRO, UACSIND #### [facility] [address] [place] [address] Dr. Alo Hendricks Crystals LM Nom (Urine sed) NONE SEEN Normal NONE SEEN [facility] Comment on above: Performed By: #### U MICRO, UACSIND #### [facility] [address] [place] [address] Dr. Alo Hendricks Epithelial cells LM Ql (Urine sed) NONE SEEN Normal NONE SEEN /RARE [facility] Comment on above: Performed By: #### U MICRO, UACSIND #### [facility] [address] [place] [address] Dr. Alo Hendricks MUCOUS NONE SEEN Normal NONE SEEN [facility] Comment on above: Performed By: #### U MICRO, UACSIND #### [facility] [address] [place] [address] Dr. Alo Hendricks RBC 0-2 Normal 0-2 [facility] Comment on above: Performed By: #### U MICRO, UACSIND #### [facility] [address] [place] [address] Dr. Alo Hendricks WBC NONE SEEN Normal NONE SEEN [facility] Comment on above: Performed By: #### U MICRO, UACSIND #### [facility] [address] [place] [address] Dr. Alo Hendricks Encounters Encounter Date Encounter [...] examination without abnormal findings DR SADIQ LUCAS [facility] Start: 04-26-2021 End: 04-27-[address] SADIQ LUCAS Facility:[facility] Start: 04-26-2021 End: 04-27-2021 Encounter for general adult medical examination without abnormal findings DR SADIQ LUCAS Facility:[facility] Start: 06-01-2020 End: 06-02-[address] KACEY LCUAS Facility:[facility] Procedures Date Procedure Procedure Detail Performing Clinician Start: 04-26-2023 ALL CBC WITH AUTO DIFF Shaikh Nasrin GIRALDO Work Phone: Plan of Treatment Date Care Activity Detail Author Start: 05-27-2023 End: 05-27-2023 Patient encounter procedure 05/27/2023 6:30 PM EST Office Visit [facility] [address] [place] [address] Shaikh Alexandra MD [address] [place] [id number] [facility] Start: 11-23-2022 Influenza vaccination Influenza Vacc ine (#1) [facility] Start: 1980 Screening for malign ant neoplasm of colon [facility] Payers Date Payer Category Payer Private Health Insurance [employer]YSON MCKEON [id number] 2023-Present [address] [place] [id number] 1978 Unknown [id number] 1978 Unknown [id number] 1978 Unknown [id number] 1978 Unknown [id number] 1978 Unknown [id number] 1959 Private Health Insurance [facility] [id number] 1961 Private Health Insurance [facility] [id number] Social History Date Type Detail Facility Start: 04-22-2023 Tobacco smoking stat [facility] Ex-smoker [facility] History of tobacco use Current smoker [facility] History of tobacco use Cigarette [facility] History of tobacco use Passive smoker [facility] Start: 04-22-2023 Tobacco use and exposure Smokeless t obacco non-user [facility] Start: 04-22-2023 Alcohol intake Lifetime non-d sanjeev (finding) [facility] Start: 04-22-2023 History of Social function [facility] Start: 04-22-2023 Tobacco use panel [facility] Start: 1980 Sex Assigned At Not on file N [facility] Clinical Note 06-01-2020 Note Date & [...] or depression. 3. Please correlate clinically. [facility] Summary Purpose Family History No Family History Records FoundNo Family History Records Found Advance Directives No Advanced Directives Records FoundNo Advanced Directives Records Found Additional Source Comments (unrecognized sect ion and content) No Status Records FoundNo Status Records Found INFORMATION SOURCE (unrecogn ized section and content) DATE CREATED AUTHOR 04/29/2021 [facility] DATE CREATED AUTHOR AUTHOR'S ORGANIZ ATION 06/25/2023 [facility] [employer] Care Teams (unrecognized sec tion and content) Travel Sales Consultant Relationship Specialty Start Date End Date Shaikh Alexandra MD [address] [place] [address] PCP - General Internal Medicine 04/22/23 FOR [...] BE BASED ON THE PRIMARY CLINICAL RECORDS. [employer] [facility]. provides no warranty or guarantee of the accuracy or completeness of information in this document.
[2023-07-05 08:02] VITALS: BP 138/106; PULSE 108; TEMP 36.4; O2SAT 97; BMI 30.3
[2023-07-05 08:26] VITALS: BP 144/108
[2023-07-05] MEDS: LACTATED RINGER'S SOLUTION 1,000 ML 50 ML IV (08:44)
[2023-07-05 08:46] VITALS: BP 160/121
[2023-07-05 09:43] VITALS: BP 127/86; PULSE 96; O2SAT 96
--- NOTE | 2023-07-05 09:48 | PM.GSPRC ---
Date of procedure: 07/05/23 Indications for Procedure: positive cologuard Pre-op diagnosis: positive cologuard, diagnostic colonoscopy Post-op diagnosis: other (polypectomy x2, 80cm and 15cm, mild sigmoid diverticulosis ) Procedure: Previous colonoscopy: never PROCEDURE: The patient was given IV conscious sedation per anesthesia.? The patient's SPO2 remained above 90% throughout the procedure. The colonoscope was inserted per rectum and advanced under direct vision to the cecum without difficulty.? The prep was good.? Findings: Terminal ileum os: normal Cecum/Ascending colon: normal Transverse colon: normal Descending/Sigmoid colon: 80cm subcentimeter polyp proximal distal colon/splenic flexure removed with cold biopsy forceps, 15cm subcentimeter polyp removed with cold biopsy forceps Rectum/Anus: examined in normal and retroflexed positions and was normal aside for mild internal hemorrhoids, small external skin tags noted Withdrawal Time was (minutes): 18 The colon was decompressed and the scope was removed.? The patient tolerated the procedure well. Recommendations/Plan: 1.? Lifestyle and dietary modifications as discussed 2.? F/U Biopsies 3.? F/U in office to discuss biopsy results and timing for repeat c-scope 4.? Discussed with the family Findings: polypectomy x2, 80cm and 15cm, mild sigmoid diverticulosis Anesthesia: MAC Surgeon: Simon Rey Estimated blood loss (mL): 2 Complications: No Pathology: none sent Condition: stable Disposition: PACU
[2023-07-05 09:58] VITALS: BP 144/99; PULSE 100; O2SAT 96
== END 2023-07-05 10:13 | disposition home or self-care (01) ==
PROVIDERS: PCP Internal Medicine; Visit Provider Surgery
PROC: (CPT 811; principal; 2023-07-05 09:00)
DX: R19.5 Other fecal abnormalities (principal); K57.30 Diverticulosis of large intestine without perforation or abscess without bleeding; K64.8 Other hemorrhoids; K64.4 Residual hemorrhoidal skin tags; D12.3 Benign neoplasm of transverse colon; K63.5 Polyp of colon; K59.09 Other constipation; Z87.891 Personal history of nicotine dependence; E78.5 Hyperlipidemia, unspecified; I10 Essential (primary) hypertension; G47.33 Obstructive sleep apnea (adult) (pediatric)
CPT/HCPCS: 45380; 88305; 99999; J2704

== ENCOUNTER 2023-11-01 10:23 | Outpatient (OUT) | payer OTHER, SELFPAY ==
--- NOTE | 2023-11-01 10:28 | FL_ITS ---
The [address] [address] Patient Name: KATHLEEN LENZ MRN: [id number] date: 1980 Sex: M Assigned Patient Location: [place] Current Patient Location: [place] Accession/Order Number: [id number] Exam Date: 11/01/2023 10:35 Report Date: 11/01/2023 11:05 At the request of: JUAN BAUER Procedure: FL fluoroscopy <1hr EXAMINATION: FL fluoroscopy <1hr HISTORY: Elevated Hemidiaphragm J98.6 ; elevated right hemidiaphragm on prior chest x-ray COMPARISON: No relevant comparison available. FLUORO DOSE: (Cannot calculate) mGy Reference air kerma (Ka,r) TECHNIQUE: Standard level fluoroscopic mode of operation utilized. FINDINGS: Fluoroscopic evaluation during quick, deep inspiration demonstrates slight upward bowing of the right hemidiaphragm and normal descent of the left hemidiaphragm. FL/FL fluoroscopy <1hr IMPRESSION: 1. 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 Consider CT chest and abdomen with IV contrast to exclude a pathologic cause. Electronically authenticated by: JESSICA GARCIA Date: 11/01/2023 11:05
--- OUTSIDE RECORDS SUMMARY | 2023-11-01 10:29 | XMS_ITS | CCD ---
Author Organization [facility] Inform ion Partnership [facility] Care Team Providers Care Strategic Communications Specialist Name Role Phone DR DENAE LUCAS Admitting Unavailable JACOB, DR DENAE Cortez Attending Unavailable JACOB, DR DENAE Cortez Primary Care Unavailable JACOB, DR DENAE Cortez Consulting Unavailable JACOB, DR BABCOCK Admitting Unavailable JACOB, DR BABCOCK Attending Unavailable JACOB, DR DENAE Cortez Primary Care Unavailable JACOB, DR DENAE Cortez Consulting Unavailable Shaikh Alexandra MD Primary Care Provider SHAIKH ALEXANDRA Attending Unavailable SHAIKH ALEXANDRA Attending Unavailable ELIO MACHADO Attending Unavailable SHAIKH ALEXANDRA Referring Unavailable NON STAFF Attending Provider Unavailable NON STAFF Attending Unavailable NON STAFF Admitting Unavailable Medications Current Medications Medication Drug Class(es) [...] Test Name Value Interpretation Reference Range Facility [facility] 07-05-2023 L Specimen: [id number] Received: 07/08/23 Status: SYLVAIN Lambert Num: [id number] Spec Type: Surgical Subm Dr: NON STAFF Tissues: A Colon Biopsy (SPLENIC FLEXURE) B Colon Biopsy (SIGMOID POLYP) Procedures: HE/4, Gross/Micro L4/2 Age/ Patient Sex Location Account Attending Physician RaulAlexy Marc 43/M [place] [id number] NON STAFF SPEC NUM: [id number] RECD: 07/08/23 STATUS: SYLVAIN RIVERAZaki NUM: [id number] YULIET: 07/05/[address]: EVERETTE STAFF ENTERED: 07/08/[address] [facility] [address]: Bea,Lab SPEC TYPE: Surgical DEPT: REBECA PIERRE ORDERED: HE/4, Gross/Micro L4/2 ORDERED: HE/4, Gross/Micro L4/2 Pathological Diagnosis A, colon polyp biopsy at splenic flexure: -Tubular adenoma B, sigmoid polyp biopsy: -Small serrated hyperplastic polyp Gross Description A.) In formalin labeled splenic flexure is one 0.4 x 0.3 x 0.2 cm piece of roberts-pink mucosa. Submitted entirely in A1. B.) In formalin labeled sigmoid polyp is one 0.4 x 0.2 x 0.2 cm piece of roberts-pink mucosa. Submitted entirely in B1. RG/CYC Clinical history: Mild sigmoid diverticulosis, splenic flexure?80 cm polyp, sigmoid polyp CPT Codes 49184 x 2 Specimen: [id number] Received: 07/08/23 Status: SYLVAIN Petra Num: [id number] Spec Type: Surgical Subm Dr: EVERETTE FORRESTER Tissues: A Colon Biopsy (SPLENIC FLEXURE) B Colon Biopsy (SIGMOID POLYP) Procedures: HE/4, Gross/Micro L4/2 Patient: RaulAleyx [id number] (Continued) Signed (signature on file) Shasha Hendricks MD 07/10/23 1209 Normal [facility] ALL CBC WITH AUTO DIFFon BASOPHILS ABSOLUTE AUTO 0.1 [facility] Basophils/100 WBC (Bld) 0.9 % 0.2 - 2.0 % [facility] Eosinophils/100 WBC (Bld) 4.8 % 0.9 - 7.0 % [facility] Erythrocyte distribution width (RBC) [Ratio] 13.6 % 11.0 - 15.0 % [facility] Hematocrit (Bld) [Volume fraction] 41.8 % Low 42.0 - 54.0 % [facility] Hemoglobin (Bld) [Mass/Vol] 13.6 g/dL Low 14.0 - 18.0 g/dL [facility] IMMATURE GRANULOCYTES ABS AUTO 0.02 [facility] Immature granulocytes/100 WBC (Bld) 0.4 % 0.0 - 0.5 % [facility] Interpretation and review of laboratory results Abnormal [facility] LYMPHOCYTES ABSOLUTE AUTO 1.4 [facility] Lymphocytes/100 WBC (Bld) 25.4 % 20.5 - 60.0 % [facility] MCH (RBC) [Entitic mass] 27.6 pg 25.9 - 34.0 pg [facility] MCHC (RBC) [Mass/Vol] 32.5 g/dL 29.9 - 35.2 g/dL [facility] MCV (RBC) [Entitic vol] 84.8 fL 80.0 - 94.0 fL [facility] MONOCYTES ABSOLUTE AUTO 0.5 [facility] Monocytes/100 WBC (Bld) 9.0 % 1.7 - 12.0 % [facility] NEUTROPHILS ABSOLUTE AUTO 3.4 [facility] Neutrophils/100 WBC (Bld) 59.5 % 43.0 - 75.0 % [facility] Platelet mean volume (Bld) [Entitic vol] 10.4 fL 9.5 - 13.5 fL [facility] TBH EO # 0.3 [facility] TB PLT 264 [facility] TB RBC 4.93 [facility] TB WBC 5.7 [facility] CBC AUTO DIFFon 04-26-2021 BASO # 0.1 103/ul Normal 0.0-0.1 [facility] Comment on above: Performed By: #### C BC #### [facility] [address] [place] [address] Dr. Alo Hendricks Basophils/100 WBC (Bld) 0.9 % Normal 0.2-2.0 [facility] Comment on above: Performed By: #### C BC #### [facility] [address] [place] [address] Dr. Alo Hendricks EO # 0.3 103/ul Normal 0.0-0.7 [facility] Comment on above: Performed By: #### C BC #### [facility] [address] [address] [address] Alo Hendricks Eosinophils/100 WBC (Bld) 4.9 % Normal 0.9-7.0 [facility] Comment on above: Performed By: #### C BC #### [facility] [address] [place] [address] Dr. Alo Hendricks Erythrocyte distribution width (RBC) [Ratio] 13.3 % Normal 11.0-15.0 [facility] Comment on above: Performed By: #### C BC #### [facility] [address] [place] [address] Dr. Alo Hendricks Hematocrit (Bld) [Volume fraction] 43.2 % Normal 42.0-54.0 [facility] Comment on above: Performed By: #### C BC #### [facility] [address] [place] [address] Dr. Alo Hendricks Hemoglobin (Bld) [Mass/Vol] 13.7 g/dL Critically low 14.0-18.0 [facility] Comment on above: Performed By: #### C BC #### [facility] [address] [place] [address] Dr. Alo Hendricks IG # 0.03 10e3/ul Normal 0.00-0.03 [facility] Comment on above: Performed By: #### C BC #### [facility] [address] [place] [address] Dr. Alo Hendricks IG % 0.5 % Normal 0.0-0.5 [facility] Comment on above: Performed By: #### C BC #### [facility] [address] [place] [address] Dr. Alo Hendricks LYMPH # 1.8 103/ul Normal 1.2-3.8 [facility] Comment on above: Performed By: #### C BC #### [facility] [address] [place] [address] Dr. Alo Hendricks Lymphocytes/100 WBC (Bld) 27.7 % Normal 20.5-60.0 [facility] Comment on above: Performed By: #### C BC #### [facility] [address] [place] [address] Dr. Alo Hendricks MANUAL DIFF REQ NO Normal [facility] Comment on above: Performed By: #### C BC #### [facility] [address] [place] [address] Dr. Alo Hendricks MCH (RBC) [Entitic mass] 27.9 pg Normal 25.9-34.0 [facility] Comment on above: Performed By: #### C BC #### [facility] [address] [address] [address] Alo Hendricks MCHC (RBC) [Mass/Vol] 31.7 g/dL Normal 29.9-35.2 [facility] Comment on above: Performed By: #### C BC #### [facility] [address] [place] [address] Dr. Alo Hendricks MCV (RBC) [Entitic vol] 88.0 fL Normal 80.0-94.0 [facility] Comment on above: Performed By: #### C BC #### [facility] [address] [place] [address] Dr. Alo Hendricks MONO # 0.7 103/ul Normal 0.3-0.8 [facility] Comment on above: Performed By: #### C BC #### [facility] [address] [place] [address] Dr. Alo Hendricks Monocytes/100 WBC (Bld) 11.0 % Normal 1.7-12.0 [facility] Comment on above: Performed By: #### C BC #### [facility] [address] [place] [address] Dr. Alo Hendricks NEUT # 3.6 103/ul Normal 1.4-6.5 [facility] Comment on above: Performed By: #### C BC #### [facility] [address] [place] [address] Dr. Alo Hendricks Neutrophils/100 WBC (Bld) 55.0 % Normal 43.0-75.0 [facility] Comment on above: Performed By: #### C BC #### [facility] [address] [place] [address] Dr. Alo Hendricks Platelet mean volume (Bld) [Entitic vol] 10.4 fL Normal 9.5-13.5 [facility] Comment on above: Performed By: #### C BC #### [facility] [address] [place] [address] Dr. Alo Hendricks PLT 262 103/ul Normal 150-450 [facility] Comment on above: Performed By: #### C BC #### [facility] [address] [place] [address] Dr. Alo Hendricks RBC 4.91 106/ul Normal 4.70-6.10 [facility] Comment on above: Performed By: #### C BC #### [facility] [address] [address] [address] Alo Hendricks WBC 6.6 103/ul Normal 4.0-11.0 [facility] Comment on above: Performed By: #### C BC #### [facility] [address] [address] [address] Alo Hendricks LIPID PROFILEon 04-26-2021 CHOL-HDL RATIO NORM SEE BELOW Normal [facility] Comment on above: Result Comment: 3.3 - 4.4 LOW RISK 4.4 - 7.1 AVERAGE RISK 7.1 - 11.0 MODERATE RISK >11.0 HIGH RISK Performed By: #### L IPID, CMP #### [facility] [address] [place] [address] Dr. Alo Hendricks Cholesterol [Mass/Vol] 165 mg/dL Normal <=200 [facility] Comment on above: Performed By: #### L IPID, CMP #### [facility] [address] [address] [address] Alo Hendricks Cholesterol in HDL [Mass/Vol] 48 mg/dL Normal [facility] Comment on above: Performed By: #### L IPID, CMP #### [facility] [address] [address] [address] Alo Hendricks Cholesterol in LDL [Mass/Vol] 95.8 mg/dL Normal [facility] Comment on above: Performed By: #### L IPID, CMP #### [facility] [address] [address] [address] Alo Hendricks Cholesterol.total/Ch olesterol in HDL [Mass ratio] 3.4 {ratio} Normal [facility] Comment on above: Performed By: #### L IPID, CMP #### [facility] [address] [address] [address] Alo Hendricks HDL NORMAL > or = 60 mg/dl - LOW CARDIOVASCULAR RISK <40 mg/dl - HIGH CARDIOVASCULAR RISK Normal [facility] Comment on above: Performed By: #### L IPID, CMP #### [facility] [address] [address] [address] Alo Hendricks LDL CALC NORMAL SEE BELOW Normal [facility] Comment on above: Result Comment: <100 mg/dl OPTIMAL 100 - 129 mg/dl NEAR OR ABOVE OPTIMAL 130 - 159 mg/dl BORDERLINE HIGH 160 - 189 mg/dl HIGH >190 mg/dl VERY HIGH Performed By: #### L IPID, CMP #### [facility] [address] [address] [address] Alo Hendricks Triglyceride [Mass/Vol] 106 mg/dL Normal <=150 [facility] Comment on above: Performed By: #### L IPID, CMP #### [facility] [address] [address] [address] Alo Hendricks VLDL CALC 21.2 mg/dL Normal [facility] Comment on above: Performed By: #### L IPID, CMP #### [facility] [address] [address] [address] Alo Hendricks PROF 14(COMP METB)on 022 Albumin [Mass/Vol] 4.1 g/dL Normal 3.5-5.0 [facility] Comment on above: Performed By: #### L IPID, CMP #### [facility] [address] [place] [address] Dr. Alo Hendricks Albumin/Globulin [Mass ratio] 1.1 {ratio} Normal [facility] Comment on above: Performed By: #### L IPID, CMP #### [facility] [address] [place] [address] Dr. Alo Hendricks ALP [Catalytic activity/Vol] 61 U/L Normal 38-126 [facility] Comment on above: Performed By: #### L IPID, CMP #### [facility] [address] [place] [address] Dr. Alo Hendricks ALT [Catalytic activity/Vol] 45 U/L Normal 21-72 [facility] Comment on above: Performed By: #### L IPID, CMP #### [facility] [address] [address] [address] Alo Hendricks Anion gap [Moles/Vol] 11.8 mmol/L Normal [facility] Comment on above: Performed By: #### L IPID, CMP #### [facility] [address] [address] [address] Alo Hendricks AST [Catalytic activity/Vol] 28 U/L Normal 17-59 [facility] Comment on above: Performed By: #### L IPID, CMP #### [facility] [address] [address] [address] Alo Hendricks Bilirubin [Mass/Vol] 0.6 mg/dL Normal 0.2-1.3 [facility] Comment on above: Performed By: #### L IPID, CMP #### [facility] [address] [place] [address] Dr. Alo Hendricks Calcium [Mass/Vol] 9.2 mg/dL Normal 8.4-10.2 [facility] Comment on above: Performed By: #### L IPID, CMP #### [facility] [address] [address] [address] Alo Hendricks Chloride [Moles/Vol] 99 mmol/L Normal 98-107 [facility] Comment on above: Performed By: #### L IPID, CMP #### [facility] [address] [address] [address] Alo Hendricks CO2 [Moles/Vol] 32.1 mmol/L Critically high 22.0-30.0 [facility] Comment on above: Performed By: #### L IPID, CMP #### [facility] [address] [address] [address] Alo Hendricks Creatinine [Mass/Vol] 0.76 mg/dL Normal 0.66-1.25 [facility] Comment on above: Performed By: #### L IPID, CMP #### [facility] [address] [address] [address] Alo Hendricks EGFR-AF FILIPINO >60 Normal >=60 [facility] Comment on above: Performed By: #### L IPID, CMP #### [facility] [address] [address] [address] Alo Hendricks EGFR-NON AF FILIPINO >60 Normal >=60 [facility] Comment on above: Performed By: #### L IPID, CMP #### [facility] [address] [address] [address] Alo Hendricks Globulin (S) [Mass/Vol] 3.7 g/dL Normal [facility] Comment on above: Performed By: #### L IPID, CMP #### [facility] [address] [place] [address] Dr. Alo Hendricks Glucose [Mass/Vol] 101 mg/dL Normal 74-106 [facility] Comment on above: Performed By: #### L IPID, CMP #### [facility] [address] [place] [address] Dr. Alo Hendricks Potassium [Moles/Vol] 4.9 mmol/L Normal 3.4-5.0 [facility] Comment on above: Performed By: #### L IPID, CMP #### [facility] [address] [place] [address] Dr. Alo Hendricks Protein [Mass/Vol] 7.8 g/dL Normal 6.1-8.2 [facility] Comment on above: Performed By: #### L IPID, CMP #### [facility] [address] [place] [address] Dr. Alo Hendricks Sodium [Moles/Vol] 138 mmol/L Normal 137-145 [facility] Comment on above: Performed By: #### L IPID, CMP #### [facility] [address] [place] [address] Dr. Alo Hendricks Urea nitrogen [Mass/Vol] 12.0 mg/dL Normal 9.0-20.0 [facility] Comment on above: Performed By: #### L IPID, CMP #### [facility] [address] [place] [address] Dr. Alo Hendricks Urea nitrogen/Creatinine [Mass ratio] 15.8 mg/mg Normal [facility] Comment on above: Performed By: #### L IPID, CMP #### [facility] [address] [address] [address] Alo Hendricks UA (CLEAN/CATCH) EMPLOYEE'S REPRESENTATIVE/MICRO I F IND.on 04-26-2021 Bilirubin Ql (U) Negative Normal NEGATIVE [facility] Comment on above: Performed By: #### U MICRO, UACSIND #### [facility] [address] [address] [address] Alo Hendricks Clarity (U) CLEAR Normal CLEAR [facility] Comment on above: Performed By: #### U MICRO, UACSIND #### [facility] [address] [address] [address] Alo Hendricks Color (U) LT. YELLOW Normal YELLOW [facility] Comment on above: Performed By: #### U MICRO, UACSIND #### [facility] [address] [place] [address] Dr. Alo Hendricks Glucose Ql (U) Negative Normal NEGATIVE [facility] Comment on above: Performed By: #### U MICRO, UACSIND #### [facility] [address] [address] [address] Alo Hendricks Hemoglobin Ql (U) Negative Normal NEGATIVE [facility] Comment on above: Performed By: #### U MICRO, UACSIND #### [facility] [address] [place] [address] Dr. Alo Hendricks Ketones Ql (U) Negative Normal NEGATIVE [facility] Comment on above: Performed By: #### U MICRO, UACSIND #### [facility] [address] [address] [address] Alo Hendricks LEUKOCYTES Negative Normal NEGATIVE [facility] Comment on above: Performed By: #### U MICRO, UACSIND #### [facility] [address] [address] [address] Alo Hendricks Nitrite Ql (U) Negative Normal NEGATIVE [facility] Comment on above: Performed By: #### U MICRO, UACSIND #### [facility] [address] [address] [address] Alo Hendricks pH (U) 7.5 [pH] Normal 5-9 [facility] Comment on above: Performed By: #### U MICRO, UACSIND #### [facility] [address] [address] [address] Alo Hendricks SPEC GRAVITY 1.010 Normal 1.005-<=1.025 [facility] Comment on above: Performed By: #### U MICRO, UACSIND #### [facility] [address] [address] [address] Alo Hendricks UA PROTEIN Negative Normal NEGATIVE/ TRACE [facility] Comment on above: Performed By: #### U MICRO, UACSIND #### [facility] [address] [address] [address] Alo Hendricks UR MICRO IND MICROSCOPIC ALREADY ORDERED Normal [facility] Comment on above: Performed By: #### U MICRO, UACSIND #### [facility] [address] [place] [address] Dr. Alo Hendricks Urobilinogen Qn (U) 0.2 {Leann'U}/dL Normal 0.2 - 1. 0 [facility] Comment on above: Performed By: #### U MICRO, UACSIND #### [facility] [address] [address] [address] Alo Hendricks URINE MICROSCOPIC ONLYon BACTERIA NONE SEEN Normal NONE SEEN [facility] Comment on above: Performed By: #### U MICRO, UACSIND #### [facility] [address] [address] [address] Alo Hendricks Bacteria identified Cx Nom (U) NOT INDICATED Normal [facility] Comment on above: Performed By: #### U MICRO, UACSIND #### [facility] [address] [address] [address] Alo Hendricks CAST NONE SEEN Normal NONE SEEN [facility] Comment on above: Performed By: #### U MICRO, UACSIND #### [facility] [address] [address] [address] Alo Hendricks Crystals LM Nom (Urine sed) NONE SEEN Normal NONE SEEN [facility] Comment on above: Performed By: #### U MICRO, UACSIND #### [facility] [address] [address] [address] Alo Hendricks Epithelial cells LM Ql (Urine sed) NONE SEEN Normal NONE SEEN /RARE [facility] Comment on above: Performed By: #### U MICRO, UACSIND #### [facility] [address] [address] [address] Alo Hendricks MUCOUS NONE SEEN Normal NONE SEEN [facility] Comment on above: Performed By: #### U MICRO, UACSIND #### [facility] [address] [address] [address] Alo Hendricks RBC 0-2 Normal 0-2 [facility] Comment on above: Performed By: #### U MICRO, UACSIND #### [facility] [address] [address] [address] Alo Hendricks WBC NONE SEEN Normal NONE SEEN [facility] Comment on above: Performed By: #### U MICRO, UACSIND #### [facility] [address] [address] [address] Alo Hendricks Encounters Encounter Date Encounter Type Care Provider Facility Start: 07-05-2023 End: 07-05-2023 ambulatory NON STAFF Facility:[facility] Start: 07-05-2023 End: 07-05-2023 ambulatory [facility] Work Phone: Start: 07-05-2023 End: 07-05-2023 Departed Referred [facility] Start: 06-24-2023 End: 06-24-2023 ambulatory ELIO MACHADO Not Available Start: 05-27-2023 End: 05-27-2023 ambulatory SHAIKH WAN Not Available Start: 04-26-2023 [facility] Result Encounter Shaikh Wan GIRALDO Work Phone: [facility] Unsolicited Start: 04-26-2023 [facility] Result Encounter Shaikh Wan GIRALDO Work Phone: [facility] Unsolicited Start: 04-22-2023 End: 04-22-2023 ambulatory SHAIKH WAN Not Available Start: 04-28-2021 Encounter for genera l adult medical examination without abnormal findings DR SADIQ LUCAS [facility] Start: 04-26-2021 End: 04-27-[address] SADIQ LUCAS Facility:[facility] Start: 04-26-2021 End: 04-27-2021 Encounter for general adult medical examination without abnormal findings DR SADIQ LUCAS Facility:[facility] Start: 06-01-2020 End: 06-02-[address] DENAE LUCAS Facility:[facility] Procedures Date Procedure Procedure Detail Performing Clinician Start: 04-26-2023 ALL CBC WITH AUTO DIFF Shaikh Wan GIRALDO Work Phone: Plan of Treatment Date Care Activity Detail Author Start: 05-27-2023 End: 05-27-2023 Patient encounter procedure 05/27/2023 6:30 PM EST Office Visit [facility] [address] [place] [phone] Shaikh Alexandra MD [address] [place] [phone] [facility] Start: 11-23-2022 Influenza vaccination Influenza Vacc ine (#1) [facility] Start: 1980 Screening for malign ant neoplasm of colon [facility] Payers Date Payer Category Payer Self-pay [id number] 2023 Private Health Insurance [employer]YSON MCKEON [id number] 2023-Present [address] [place] [address] [id number] 1978 Unknown [id number] [id number] 1978 Unknown [id number] [id number] 1978 Unknown [id number]. [id number] 1978 Unknown [id number]. [id number] 1978 Unknown [id number] [id number] 1959 Private Health Insurance [facility] [id number] 1961 Private Health Insurance [facility] [id number] Unknown Financial Counselor [id number] Unknown [id number] [id number] Social History Date Type Detail Facility Start: 04-22-2023 Tobacco smoking stat [facility] Ex-smoker [facility] History of tobacco use Current smoker [facility] History of tobacco use Cigarette Smoker [facility] History of tobacco use Passive smoker [facility] Start: 04-22-2023 Tobacco use and exposure Smokeless tobacco non-user [facility] Start: 04-22-2023 Alcohol intake Lifetime non-d sanjeev (finding) [facility] Start: 04-22-2023 History of Social function [facility] Start: 04-22-2023 Tobacco use panel [facility] Start: 1980 Sex Assigned At Not on file [facility] Start: 1980 Sex Assigned At Male [facility] Clinical Note 06-01-2020 Note Date & Type Note Facility 06-01-2020 Note HOME SLEEP STUDY Ordering Physician: Dr. Denae Lucas Procedure Date: 06-01-20 CLINICAL HISTORY: This [...] or depression. 3. Please correlate clinically. [facility] Evaluation note Note Date & Type Note Facility Evaluation note No assessment information availa [facility] Work Phone: Summary Purpose Family History No Family History Records FoundNo Family History Records FoundNo Family History Records Found Advance Directives No Advanced Directives Records FoundNo Advanced Directives Records FoundNo Advanced Directives Records Found Additional Source Comments (unrecognized sect ion and content) No Status Records FoundNo Status Records FoundNo Status Records Found INFORMATION SOURCE (unrecogn ized section and content) DATE CREATED AUTHOR 04/29/2021 [facility] DATE CREATED AUTHOR AUTHOR'S ORGANIZ ATION 06/25/2023 [facility] EPIC DATE CREATED AUTHOR AUTHOR'S ORGANIZ ATION 07/11/2023 [facility] Care Teams (unrecognized sec tion and content) Strategic Communications Specialist Relationship Specialty Start Date End Date Shaikh Alexandra MD [address] [place] [address] PCP - General Internal Medicine 04/22/23 Team Status: Inactive Member Role Status Dates NON STAFF Attending Provider Active Start: Ap 2023 End: July 05, 2023 Goals (unrecognized section and content) Goals may be documented in a n alternate section FOR RECORDS PERTAINING TO PATIENTS WHO ARE [...] BE BASED ON THE PRIMARY CLINICAL RECORDS. [employer] provides no warranty or guarantee of the accuracy or completeness of information in this document.
== END 2023-11-01 10:24 | disposition home or self-care (01) ==
LOC: FL 10:24
PROVIDERS: PCP Internal Medicine
DX: J98.6 Disorders of diaphragm (principal)
CPT/HCPCS: 76000

== ENCOUNTER 2023-11-20 08:41 | Outpatient (OUT) | payer OTHER, SELFPAY ==
--- NOTE | 2023-11-20 08:47 | CT_ITS ---
[address] [address] Patient Name: KATHLEEN LENZ MRN: [id number] date: 1980 Sex: M Assigned Patient Location: CT Current Patient Location: CT Accession/Order Number: [id number] Exam Date: 11/20/2023 09:35 Report Date: 11/20/2023 11:05 At the request of: JUAN BAUER Procedure: CT chest w con EXAMINATION: CT chest w con, CT abdomen w con HISTORY: Diaphragm Paralysis J98.6 COMPARISON: No relevant comparison available. TECHNIQUE: Multi-planar CT images were obtained without and/or with IV contrast as indicated by examination type. Axial, Coronal, and Sagittal images. Dose reduction techniques were achieved by using automated exposure control and/or adjustment of mA and/or kV according to patient size and/or use of iterative reconstruction technique. FINDINGS: LUNGS: Elevated right hemidiaphragm with mild passive atelectasis adjacent the diaphragm. Unremarkable left lung. PLEURA: No mass, effusion, or pneumothorax. VASCULATURE: No abnormality. HOLLIE: No mass or adenopathy. MEDIASTINUM: No mass or adenopathy. CARDIAC: No enlargement or pericardial thickening.. Coronary artery calcifications: AORTA: No aneurysm or dissection. CHEST WALL: No mass or axillary adenopathy. LIVER: 1.5 cm round hypodensity within anterior right hepatic lobe favoring a cyst or hemangioma. No suspicious abnormality. BILIARY: No visible dilatation or calcification. PANCREAS: No lesion, fluid collection, ductal dilatation, or atrophy. SPLEEN: No enlargement or focal lesion. ADRENALS: No mass or enlargement. KIDNEYS: No mass, obstruction, or calcification. BOWEL/MESENTERY: No visible mass, obstruction, or bowel wall thickening. AORTA/VASCULAR: No aneurysm or dissection. RETROPERITONEUM: No mass or adenopathy. ABDOMINAL WALL: No mass or hernia. BONES: No bony lesion or fracture. OTHER: Negative. CT/CT chest w con IMPRESSION: 1. 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 No abnormal or suspicious findings to account for this finding. Electronically authenticated by: JESSICA GARCIA Date: 11/20/2023 11:05
--- NOTE | 2023-11-20 08:47 | CT_ITS ---
[address] [address] Patient Name: KATHLEEN LENZ MRN: [id number] date: 1980 Sex: M Assigned Patient Location: CT Current Patient Location: CT Accession/Order Number: [id number] Exam Date: 11/20/2023 09:35 Report Date: 11/20/2023 11:05 At the request of: JUAN BAUER Procedure: CT abdomen w con EXAMINATION: CT chest w con, CT abdomen w con HISTORY: Diaphragm Paralysis J98.6 COMPARISON: No relevant comparison available. TECHNIQUE: Multi-planar CT images were obtained without and/or with IV contrast as indicated by examination type. Axial, Coronal, and Sagittal images. Dose reduction techniques were achieved by using automated exposure control and/or adjustment of mA and/or kV according to patient size and/or use of iterative reconstruction technique. FINDINGS: LUNGS: Elevated right hemidiaphragm with mild passive atelectasis adjacent the diaphragm. Unremarkable left lung. PLEURA: No mass, effusion, or pneumothorax. VASCULATURE: No abnormality. HOLLIE: No mass or adenopathy. MEDIASTINUM: No mass or adenopathy. CARDIAC: No enlargement or pericardial thickening.. Coronary artery calcifications: AORTA: No aneurysm or dissection. CHEST WALL: No mass or axillary adenopathy. LIVER: 1.5 cm round hypodensity within anterior right hepatic lobe favoring a cyst or hemangioma. No suspicious abnormality. BILIARY: No visible dilatation or calcification. PANCREAS: No lesion, fluid collection, ductal dilatation, or atrophy. SPLEEN: No enlargement or focal lesion. ADRENALS: No mass or enlargement. KIDNEYS: No mass, obstruction, or calcification. BOWEL/MESENTERY: No visible mass, obstruction, or bowel wall thickening. AORTA/VASCULAR: No aneurysm or dissection. RETROPERITONEUM: No mass or adenopathy. ABDOMINAL WALL: No mass or hernia. BONES: No bony lesion or fracture. OTHER: Negative. CT/CT abdomen w con IMPRESSION: 1. 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 No abnormal or suspicious findings to account for this finding. Electronically authenticated by: JESSICA GARCIA Date: 11/20/2023 11:05
== END 2023-11-20 08:42 | disposition home or self-care (01) ==
LOC: CT 08:41
DX: J98.6 Disorders of diaphragm (principal); R93.89 Abnormal findings on diagnostic imaging of other specified body structures
CPT/HCPCS: 71260; 74160; Q9967

== ENCOUNTER 2023-12-07 06:54 | Outpatient (OUT) | payer OTHER, SELFPAY ==
--- OUTSIDE RECORDS SUMMARY | 2023-12-07 06:57 | XMS_ITS | CCD ---
Author Organization [facility] Care Team Providers Care Ux Manager Name Role Phone DR DENAE JAMES Admitting Unavailable JACOB, DR DENAE Condon Attending Unavailable JACOB, DR DENAE Condon Primary Care Unavailable JACOB, DR DENAE Condon Consulting Unavailable JACOB, DR BABCOCK Admitting Unavailable JACOB, DR BABCOCK Attending Unavailable JACOB, DR DENAE Condon Primary Care Unavailable JACOB, DR DENAE Condon Consulting Unavailable Shaikh Blas MD Primary Care Provider NON STAFF Attending Provider Unavailable NON STAFF Attending Unavailable NON STAFF Admitting Unavailable SHAIKH BLAS Attending Unavailable SHAIKH BLAS Attending Unavailable ELIO MACHADO Attending Unavailable SHAIKH BLAS Referring Unavailable SHAIKH BLAS Attending Unavailable JUAN BAUER Attending Unavailpita condon Medications Current Medications Medication Drug Class(es) Dates [...] Test Name Value Interpretation Reference Range Facility [facility] 07-05-2023 L Specimen: [id number] Received: 07/08/23 Status: SYLVAIN Lambert Num: [id number] Spec Type: Surgical Subm Dr: NON STAFF Tissues: A Colon Biopsy (SPLENIC FLEXURE) B Colon Biopsy (SIGMOID POLYP) Procedures: HE/4, Gross/Micro L4/2 Age/ Patient Sex Location Account Attending Physician Kathleen Carter 43/M [place] [id number] NON STAFF SPEC NUM: [id number] RECD: 07/08/23 STATUS: SYLVAIN LAMBERT NUM: [id number] YULIET: 07/05/[address] [facility] [address]: [place] STAFF ENTERED: 07/08/[address] [facility] [address]: Bea,Lab SPEC TYPE: Surgical DEPT: REBECA [...] flexure?80 cm polyp, sigmoid polyp CPT Codes 67582 x 2 Specimen: [id number] Received: 07/08/23 Status: SYLVAIN Lambert Num: [id number] Spec Type: Surgical Subm Dr: NON STAFF Tissues: A Colon Biopsy (SPLENIC FLEXURE) B Colon Biopsy (SIGMOID POLYP) Procedures: HE/4, Gross/Micro L4/2 Patient: RaulKathleen [id number] (Continued) Signed (signature on file) Shasha Hendricks MD 07/10/23 1209 Normal [facility] ALL CBC WITH AUTO DIFFon BASOPHILS ABSOLUTE AUTO 0.1 [facility] Basophils/100 WBC (Bld) 0.9 % 0.2 - 2.0 % [facility] Healthcare Eosinophils/100 WBC (Bld) 4.8 % 0.9 - 7.0 % [facility] Erythrocyte distribution width (RBC) [Ratio] 13.6 % 11.0 - 15.0 % [facility] Hematocrit (Bld) [Volume fraction] 41.8 % Low 42.0 - 54.0 % [facility] Health[facility] e Hemoglobin (Bld) [Mass/Vol] 13.6 g/dL Low 14.0 - 18.0 g/dL [facility] IMMATURE GRANULOCYTES ABS AUTO 0.02 [facility] Immature granulocytes/100 WBC (Bld) 0.4 % 0.0 - 0.5 % [facility] Interpretation and review of laboratory results Abnormal [facility] LYMPHOCYTES ABSOLUTE AUTO 1.4 [facility] Lymphocytes/100 WBC (Bld) 25.4 % 20.5 - 60.0 % [facility] MCH (RBC) [Entitic mass] 27.6 pg 25.9 - 34.0 pg [facility] MCHC (RBC) [Mass/Vol] 32.5 g/dL 29.9 - 35.2 g/dL [facility] MCV (RBC) [Entitic vol] 84.8 fL 80.0 - 94.0 fL [facility] MONOCYTES ABSOLUTE AUTO 0.5 [facility] Monocytes/100 WBC (Bld) 9.0 % 1.7 - 12.0 % [facility] NEUTROPHILS ABSOLUTE AUTO 3.4 [facility] Neutrophils/100 WBC (Bld) 59.5 % 43.0 - 75.0 % [facility] Platelet mean volume (Bld) [Entitic vol] 10.4 fL 9.5 - 13.5 fL [facility] Healthc are TBH EO # 0.3 [facility] PLT 264 [facility] RBC 4.93 [facility] WBC 5.7 [facility] CBC AUTO DIFFon 04-26-2021 BASO # 0.1 103/ul Normal 0.0-0.1 [facility] Comment on above: Performed By: #### C BC #### [facility] [address] [place] [address] Dr. Alo Hendricks Basophils/100 WBC (Bld) 0.9 % Normal 0.2-2.0 [facility] Comment on above: Performed By: #### C BC #### [facility] [address] [place] [address] Dr. Alo Hendricks EO # 0.3 103/ul Normal 0.0-0.7 [facility] Comment on above: Performed By: #### C BC #### [facility] [address] [address] [address] Alo Hendricks Eosinophils/100 WBC (Bld) 4.9 % Normal 0.9-7.0 [facility] Comment on above: Performed By: #### C BC #### [facility] [address] [place] [address] Dr. Alo Hendricks Erythrocyte distribution width (RBC) [Ratio] 13.3 % Normal 11.0-15.0 [facility] Comment on above: Performed By: #### C BC #### [facility] [address] [place] [address] Dr. Alo Hendricks Hematocrit (Bld) [Volume fraction] 43.2 % Normal 42.0-54.0 [facility] Comment on above: Performed By: #### C BC #### [facility] [address] [place] [address] Dr. Alo Hendricks Hemoglobin (Bld) [Mass/Vol] 13.7 g/dL Critically low 14.0-18.0 [facility] Comment on above: Performed By: #### C BC #### [facility] [address] [place] [address] Dr. Alo Hendricks IG # 0.03 10e3/ul Normal 0.00-0.03 [facility] Comment on above: Performed By: #### C BC #### [facility] [address] [place] [address] Dr. Alo Hendricks IG % 0.5 % Normal 0.0-0.5 [facility] Comment on above: Performed By: #### C BC #### [facility] [address] [place] [address] Dr. Alo Hendricks LYMPH # 1.8 103/ul Normal 1.2-3.8 [facility] Comment on above: Performed By: #### C BC #### [facility] [address] [place] [address] Dr. Alo Hendricks Lymphocytes/100 WBC (Bld) 27.7 % Normal 20.5-60.0 [facility] Comment on above: Performed By: #### C BC #### [facility] [address] [place] [address] Dr. Alo Hendricks MANUAL DIFF REQ NO Normal [facility] Comment on above: Performed By: #### C BC #### [facility] [address] [place] [address] Dr. Alo Hendricks MCH (RBC) [Entitic mass] 27.9 pg Normal 25.9-34.0 [facility] Comment on above: Performed By: #### C BC #### [facility] [address] [address] [address] Alo Hendricks MCHC (RBC) [Mass/Vol] 31.7 g/dL Normal 29.9-35.2 [facility] Comment on above: Performed By: #### C BC #### [facility] [address] [address] [address] Alo Hendricks MCV (RBC) [Entitic vol] 88.0 fL Normal 80.0-94.0 [facility] Comment on above: Performed By: #### C BC #### [facility] [address] [address] [address] Alo Hendricks MONO # 0.7 103/ul Normal 0.3-0.8 [facility] Comment on above: Performed By: #### C BC #### [facility] [address] [place] [address] Dr. Alo Hendricks Monocytes/100 WBC (Bld) 11.0 % Normal 1.7-12.0 [facility] Comment on above: Performed By: #### C BC #### [facility] [address] [place] [address] Dr. Alo Hendricks NEUT # 3.6 103/ul Normal 1.4-6.5 [facility] Comment on above: Performed By: #### C BC #### [facility] [address] [place] [address] Dr. Alo Hendricks Neutrophils/100 WBC (Bld) 55.0 % Normal 43.0-75.0 [facility] Comment on above: Performed By: #### C BC #### [facility] [address] [place] [address] Dr. Alo Hendricks Platelet mean volume (Bld) [Entitic vol] 10.4 fL Normal 9.5-13.5 [facility] Comment on above: Performed By: #### C BC #### [facility] [address] [place] [address] Dr. Alo Hendricks PLT 262 103/ul Normal 150-450 [facility] Comment on above: Performed By: #### C BC #### [facility] [address] [address] [address] Alo Hendricks RBC 4.91 106/ul Normal 4.70-6.10 [facility] Comment on above: Performed By: #### C BC #### [facility] [address] [address] [address] Alo Hendricks WBC 6.6 103/ul Normal 4.0-11.0 [facility] Comment on above: Performed By: #### C BC #### [facility] [address] [place] [address] Dr. Alo Hendricks LIPID PROFILEon 04-26-2021 CHOL-HDL RATIO NORM SEE BELOW Normal [facility] Comment on above: Result Comment: 3.3 - 4.4 LOW RISK 4.4 - 7.1 AVERAGE RISK 7.1 - 11.0 MODERATE RISK >11.0 HIGH RISK Performed By: #### L IPID, CMP #### [facility] [address] [place] [address] Dr. Alo Hendricks Cholesterol [Mass/Vol] 165 mg/dL Normal <=200 [facility] Comment on above: Performed By: #### L IPID, CMP #### [facility] [address] [place] [address] Dr. Alo Hendricks Cholesterol in HDL [Mass/Vol] 48 mg/dL Normal [facility] Comment on above: Performed By: #### L IPID, CMP #### [facility] [address] [place] [address] Dr. Alo Hendricks Cholesterol in LDL [Mass/Vol] 95.8 mg/dL Normal [facility] Comment on above: Performed By: #### L IPID, CMP #### [facility] [address] [place] [address] Dr. Alo Hendricks Cholesterol.total/Ch olesterol in HDL [Mass ratio] 3.4 {ratio} Normal [facility] Comment on above: Performed By: #### L IPID, CMP #### [facility] [address] [place] [address] Dr. Alo Hendricks HDL NORMAL > or = 60 mg/dl - LOW CARDIOVASCULAR RISK <40 mg/dl - HIGH CARDIOVASCULAR RISK Normal [facility] Comment on above: Performed By: #### L IPID, CMP #### [facility] [address] [address] [address] Alo Hendricks LDL CALC NORMAL SEE BELOW Normal [facility] Comment on above: Result Comment: <100 mg/dl OPTIMAL 100 - 129 mg/dl NEAR OR ABOVE OPTIMAL 130 - 159 mg/dl BORDERLINE HIGH 160 - 189 mg/dl HIGH >190 mg/dl VERY HIGH Performed By: #### L IPID, CMP #### [facility] [address] [place] [address] Dr. Alo Hendricks Triglyceride [Mass/Vol] 106 mg/dL Normal <=150 [facility] Comment on above: Performed By: #### L IPID, CMP #### [facility] [address] [place] [address] Dr. Alo Hendricks VLDL CALC 21.2 mg/dL Normal [facility] Comment on above: Performed By: #### L IPID, CMP #### [facility] [address] [place] [address] Dr. Alo Hendricks PROF 14(COMP METB)on 022 Albumin [Mass/Vol] 4.1 g/dL Normal 3.5-5.0 [facility] Comment on above: Performed By: #### L IPID, CMP #### [facility] [address] [place] [address] Dr. Alo Hendricks Albumin/Globulin [Mass ratio] 1.1 {ratio} Normal [facility] Comment on above: Performed By: #### L IPID, CMP #### [facility] [address] [place] [address] Dr. Alo Hendricks ALP [Catalytic activity/Vol] 61 U/L Normal 38-126 [facility] Comment on above: Performed By: #### L IPID, CMP #### [facility] [address] [place] [address] Dr. Alo Hendricks ALT [Catalytic activity/Vol] 45 U/L Normal 21-72 [facility] Comment on above: Performed By: #### L IPID, CMP #### [facility] [address] [address] [address] Alo Hendricks Anion gap [Moles/Vol] 11.8 mmol/L Normal [facility] Comment on above: Performed By: #### L IPID, CMP #### [facility] [address] [address] [address] Alo Hendricks AST [Catalytic activity/Vol] 28 U/L Normal 17-59 [facility] Comment on above: Performed By: #### L IPID, CMP #### [facility] [address] [address] [address] Alo Hendricks Bilirubin [Mass/Vol] 0.6 mg/dL Normal 0.2-1.3 [facility] Comment on above: Performed By: #### L IPID, CMP #### [facility] [address] [place] [address] Dr. Alo Hendricks Calcium [Mass/Vol] 9.2 mg/dL Normal 8.4-10.2 [facility] Comment on above: Performed By: #### L IPID, CMP #### [facility] [address] [address] [address] Alo Hendricks Chloride [Moles/Vol] 99 mmol/L Normal 98-107 [facility] Comment on above: Performed By: #### L IPID, CMP #### [facility] [address] [address] [address] Alo Hendricks CO2 [Moles/Vol] 32.1 mmol/L Critically high 22.0-30.0 [facility] Comment on above: Performed By: #### L IPID, CMP #### [facility] [address] [address] [address] Alo Hendricks Creatinine [Mass/Vol] 0.76 mg/dL Normal 0.66-1.25 [facility] Comment on above: Performed By: #### L IPID, CMP #### [facility] [address] [address] [address] Alo Hendricks EGFR-AF TONGAN >60 Normal >=60 [facility] Comment on above: Performed By: #### L IPID, CMP #### [facility] [address] [address] [address] Alo Hendricks EGFR-NON AF TONGAN >60 Normal >=60 [facility] Comment on above: Performed By: #### L IPID, CMP #### [facility] [address] [address] [address] Alo Hendricks Globulin (S) [Mass/Vol] 3.7 g/dL Normal [facility] Comment on above: Performed By: #### L IPID, CMP #### [facility] [address] [address] [address] Alo Hendricks Glucose [Mass/Vol] 101 mg/dL Normal 74-106 [facility] Comment on above: Performed By: #### L IPID, CMP #### [facility] [address] [address] [address] Alo Hendricks Potassium [Moles/Vol] 4.9 mmol/L Normal 3.4-5.0 [facility] Comment on above: Performed By: #### L IPID, CMP #### [facility] [address] [address] [address] Alo Hendricks Protein [Mass/Vol] 7.8 g/dL Normal 6.1-8.2 [facility] Comment on above: Performed By: #### L IPID, CMP #### [facility] [address] [address] [address] Alo Hendricks Sodium [Moles/Vol] 138 mmol/L Normal 137-145 [facility] Comment on above: Performed By: #### L IPID, CMP #### [facility] [address] [address] [address] Alo Hendricks Urea nitrogen [Mass/Vol] 12.0 mg/dL Normal 9.0-20.0 [facility] Comment on above: Performed By: #### L IPID, CMP #### [facility] [address] [address] [address] Alo Hendricks Urea nitrogen/Creatinine [Mass ratio] 15.8 mg/mg Normal [facility] Comment on above: Performed By: #### L IPID, CMP #### [facility] [address] [address] [address] Alo Hendricks UA (CLEAN/CATCH) ORGANIZATIONAL DEVELOPMENT DIRECTOR/MICRO I F IND.on 04-26-2021 Bilirubin Ql (U) Negative Normal NEGATIVE [facility] Comment on above: Performed By: #### U MICRO, UACSIND #### [facility] [address] [address] [address] Alo Hendricks Clarity (U) CLEAR Normal CLEAR [facility] Comment on above: Performed By: #### U MICRO, UACSIND #### [facility] [address] [address] [address] Alo Hendricks Color (U) LT. YELLOW Normal YELLOW [facility] Comment on above: Performed By: #### U MICRO, UACSIND #### [facility] [address] [place] [address] Dr. Alo Hendricks Glucose Ql (U) Negative Normal NEGATIVE [facility] Comment on above: Performed By: #### U MICRO, UACSIND #### [facility] [address] [address] [address] Alo Hendricks Hemoglobin Ql (U) Negative Normal NEGATIVE [facility] Comment on above: Performed By: #### U MICRO, UACSIND #### [facility] [address] [address] [address] Alo Hendricks Ketones Ql (U) Negative Normal NEGATIVE [facility] Comment on above: Performed By: #### U MICRO, UACSIND #### [facility] [address] [address] [address] Alo Hendricks LEUKOCYTES Negative Normal NEGATIVE [facility] Comment on above: Performed By: #### U MICRO, UACSIND #### [facility] [address] [address] [address] Alo Hendricks Nitrite Ql (U) Negative Normal NEGATIVE [facility] Comment on above: Performed By: #### U MICRO, UACSIND #### [facility] [address] [address] [address] Alo Hendricks pH (U) 7.5 [pH] Normal 5-9 [facility] Comment on above: Performed By: #### U MICRO, UACSIND #### [facility] [address] [place] [address] Dr. Alo Hendricks SPEC GRAVITY 1.010 Normal 1.005-<=1.025 [facility] Comment on above: Performed By: #### U MICRO, UACSIND #### [facility] [address] [address] [address] Alo Hendricks UA PROTEIN Negative Normal NEGATIVE/ TRACE [facility] Comment on above: Performed By: #### U MICRO, UACSIND #### [facility] [address] [place] [address] Dr. Alo Hendricks UR MICRO IND MICROSCOPIC ALREADY ORDERED Normal [facility] Comment on above: Performed By: #### U MICRO, UACSIND #### [facility] [address] [place] [address] Dr. Alo Hendricks Urobilinogen Qn (U) 0.2 {Leann'U}/dL Normal 0.2 - 1. 0 [facility] Comment on above: Performed By: #### U MICRO, UACSIND #### [facility] [address] [place] [address] Dr. Alo Hendricks URINE MICROSCOPIC ONLYon BACTERIA NONE SEEN Normal NONE SEEN [facility] Comment on above: Performed By: #### U MICRO, UACSIND #### [facility] [address] [place] [address] Dr. Alo Hendricks Bacteria identified Cx Nom (U) NOT INDICATED Normal [facility] Comment on above: Performed By: #### U MICRO, UACSIND #### [facility] [address] [place] [address] Dr. Alo Hendricks CAST NONE SEEN Normal NONE SEEN [facility] Comment on above: Performed By: #### U MICRO, UACSIND #### [facility] [address] [place] [address] Dr. Alo Hendricks Crystals LM Nom (Urine sed) NONE SEEN Normal NONE SEEN [facility] Comment on above: Performed By: #### U MICRO, UACSIND #### [facility] [address] [address] [address] Alo Hendricks Epithelial cells LM Ql (Urine sed) NONE SEEN Normal NONE SEEN /RARE [facility] Comment on above: Performed By: #### U MICRO, UACSIND #### [facility] [address] [address] [address] Alo Hendricks MUCOUS NONE SEEN Normal NONE SEEN [facility] Comment on above: Performed By: #### U MICRO, UACSIND #### [facility] [address] [address] [address] Alo Hendricks RBC 0-2 Normal 0-2 [facility] Comment on above: Performed By: #### U MICRO, UACSIND #### [facility] [address] [address] [address] Alo Hendricks WBC NONE SEEN Normal NONE SEEN [facility] Comment on above: Performed By: #### U MICRO, UACSIND #### [facility] [address] [address] [address] Alo Hendricks Encounters Encounter Date Encounter Type Care Provider Facility Start: 12-04-2023 End: 12-04-2023 ambulatory JUAN BAUER Not Available Start: 09-02-2023 End: 09-02-2023 ambulatory SHAIKH WAN Not Available Start: 07-05-2023 End: 07-05-2023 ambulatory NON STAFF Facility:[facility] Start: 07-05-2023 End: 07-05-2023 ambulatory [facility] Work Phone: Start: 07-05-2023 End: 07-05-2023 Departed Referred [facility] Start: 06-24-2023 End: 06-24-2023 ambulatory ELIO [...] medical examination without abnormal findings DR SADIQ JAMES [facility] Start: 04-26-2021 End: 04-27-[address] SADIQ JAMES Facility:[facility] Start: 04-26-2021 End: 04-27-2021 Encounter for general adult medical examination without abnormal findings DR SADIQ JAMES Facility:[facility] Start: 06-01-2020 End: 06-02-[address] DENAE JAMES Facility:[facility] Procedures Date Procedure Procedure Detail Performing Clinician Start: 04-26-2023 ALL CBC WITH AUTO DIFF Shaikh Wan GIRALDO Work Phone: Plan of Treatment Date Care Activity Detail Author Start: 05-27-2023 End: 05-27-2023 Patient encounter procedure 05/27/2023 6:30 PM EST Office Visit [facility] [address] [place] [address] Shaikh Blas MD [address] [place] [phone] [facility] Start: 11-23-2022 Influenza vaccination Influenza Vacc ine (#1) [facility] Start: 1980 Screening for malign ant neoplasm of colon [facility] Payers Date Payer Category Payer Self-pay [id number] 2023 Private Health Insurance CRUZMARCIA MCKEON [id number] 2023-Present [address] [place] [id number] [id number] 1978 Unknown [id number] [id number]. [id number] 1978 Unknown [id number] [id number]. 2.593 1978 Unknown [id number] [id number]. 2.1259 1978 Unknown [id number] [id number]. 2.1259 1978 Unknown [id number] [id number]. 2.1259 1978 Unknown [id number] [id number]. 2.1259 1978 Unknown [id number] [id number]. 2.1259 1959 Private Health Insurance EB [id number] 1959 Private Health Insurance EB [id number] Unknown Financial Counselor [id number] Unknown [id number] [id number]. 2.531 Social History Date Type Detail Facility Start: 04-22-[address] [facility] Ex-smoker [facility] History of tobacco use [...] [facility] Start: 04-22-2023 Tobacco use panel [facility] Start: 1980 Sex Assigned At Not on file [facility] Start: 1980 Sex Assigned At Male F [facility] Clinical Note 06-01-2020 Note Date & Type Note Facility 06-01-2020 Note HOME SLEEP STUDY Ordering Physician: Dr. Denae James Procedure Date: 06-01-20 CLINICAL HISTORY: This is [...] or depression. 3. Please correlate clinically. [facility] Evaluation note Note Date & Type Note Facility Evaluation note No assessment information availa [facility] Work Phone: Summary Purpose Family History [...] and content) DATE CREATED AUTHOR 04/29/2021 [facility] DATE CREATED AUTHOR AUTHOR'S ORGANIZ ATION 07/11/2023 [facility] DATE CREATED AUTHOR AUTHOR'S ORGANIZ ATION 12/06/2023 [facility] [employer] Care Teams (unrecognized sec tion and content) Ux Manager Relationship Specialty Start Date End Date Shaikh Blas MD [address] [place] [id number] PCP - General Internal Medicine 04/22/23 Team Status: Inactive Member Role Status Dates NON STAFF Attending Provider Active Start: 2023 End: July 05, 2023 Goals (unrecognized [...] BE BASED ON THE PRIMARY CLINICAL RECORDS. [facility] [employer] [facility]. provides no warranty or guarantee of the accuracy or completeness of information in this document.
[2023-12-07 07:20] LABS: Chol HDL Ratio 3.5; Cholesterol 162 mg/dL (<=200); HDL Cholesterol 46 mg/dL (40-60); LDL Cholesterol Calculated 103.8 mg/dL; Triglycerides 61 mg/dL (<=150); VLDL CHOLESTEROL 12.2 mg/dL
== END 2023-12-07 06:55 | disposition home or self-care (01) ==
LOC: LAB 06:56
DX: E78.5 Hyperlipidemia, unspecified (principal)
CPT/HCPCS: 36415; 80061